=== PATIENT | female | born 1975 | race Caucasian/White ===

== ENCOUNTER 2021-12-13 14:44 | Outpatient (CLI) | payer OTHER, SELFPAY ==
--- NOTE | ~2021-12-13 | MR_ITS ---
MR breast BI wo con 12/14/2021 08:34 CDT INDICATION: History of breast implant. TECHNIQUE: MRI of the breasts perform using using the following sequences: Axial T2 fast spin-echo, 3 -D axial vibrant, sagittal T2 with and without silicone suppression.. COMPARISON: No prior studies for comparison. FINDINGS: No breast parenchymal abnormalities are identified. There is abnormal signal in the left br east implant including subcapsular line sign and keyhole sign compatible with intracapsular rupture. There is abnormal signal intensity on multiple small left axillary lymph nodes on fat suppression seq uences, suspicious for silicone involvement of these lymph nodes, compatible with extracapsular ruptu re. There is a small amount of periimplant fluid in the left breast. There are normal radial folds in the right breast implant. No evidence for intracapsular or extracapsular rupture. IMPRESSION: 1: Right breast: Intact right breast implant without evidence for rupture. 2: Left breast: Abnormal signal intensity within the left breast implant and multiple small left axi llary lymph nodes, compatible with intracapsular and possible extracapsular rupture. Reviewed, dictated and finalized at location A. IMPRESSION: 1: Right breast: Intact right breast implant without evidence for rupture. 2: Left breast: Abnormal signal intensity within the left breast implant and m ultiple small left axillary lymph nodes, compatible with intracapsular and poss ible extracapsular rupture.
== END 2021-12-13 14:45 | disposition home or self-care (01) ==
PROVIDERS: PCP Family Medicine; Visit Provider Family Medicine
DX: R92.8 Other abnormal and inconclusive findings on diagnostic imaging of breast (principal); Z98.82 Breast implant status
CPT/HCPCS: 77047

== ENCOUNTER 2024-04-02 11:04 | Outpatient (CLI) | payer BC, SELFPAY ==
--- NOTE | ~2024-04-02 | MR_ITS ---
MR breast BI wo/w con 04/03/2024 8:53 INFORMATION SYSTEMS PLANNER INDICATION: History of silicone implant rupture. TECHNIQUE: MRI of the breasts perform using standard protocol pre-and post IV contrast with the follo wing sequences: Axial T2 STIR, axial T1, axial vibrant T1 with fat suppression precontrast and multip hasic postcontrast. Axial T2 fast spin echo, 3-D axial vibrant and sagittal T2 with and without silic one suppression sequences. 17 cc MultiHance administered intravenously. COMPARISON: MRI breast dated 12/13/2021 FINDINGS: There are normal radial folds within the right breast implant without evidence for rupture. There are changes of intracapsular implant rupture of the left breast. There is curvilinear high sig nal intensity along the superior and posterior margin of the left breast implant, suspicious for extr acapsular rupture. The lymph nodes in the left axilla on prior examination demonstrating high signal intensity are not included in the [id number] on the current study. No parenchymal abnormalities ar e seen. No definite enhancing masses although the study is not tailored for CAD stream analysis. No d efinite lymphadenopathy. IMPRESSION: 1: Intracapsular rupture left breast implant with possible extracapsular extension. Reviewed, dictated and finalized at location A. RMATION SYSTEMS PLANNER IMPRESSION: 1: Intracapsular rupture left breast implant with possible extracapsular extens ion.
--- OUTSIDE RECORDS SUMMARY | 2024-04-02 12:14 | XMS_ITS ---
Author Organization [facility] Address [address] [place] [phone] Care Team Providers Care General Foreman Name Role Phone Ruby Nogueira Primary Care Provider [phone] REASON FOR VISIT Refill-Controlled Medications Medication SIG (Take, Route, Frequency, Duration) Notes Start Date End Date Status diazePAM 2 MG Take 1-2 tablets Oral two times a day; Duration: 14 days As needed for muscle spasms. DO NOT TAKE WITHIN 12 HOURS OF TAKING ALPRAZOLAM. 03/30/2024 Active Encounters Encounter Location Date Provider Diagnosis [address] [address] 03/30/2024 Ruby Nogueira Other chronic pain G89.29 Assessments Encounter Date Diagnosis (ICD Code) Assessment Notes Treatment Notes Treatment Clinical Notes 03/30/2024 Other chronic pain (ICD-10 - G89.29) Plan Of Treatment Medication Medication Name Sig Start Date Stop Date Notes diazePAM 2 MG Take 1-2 tablets Ora l two times a day; Duration: 14 days 03/30/2024 Next Appt Details Provider Name:Ruby Nogueira , 05/02/2024 11:00:00 AM, [address] [place] [address], [phone], [phone] Progress Notes * Yenifer DURAN DDOB:[birth year] (48 yo F)Acc No.[id number]:03/30/2024 Patient:CALLIDURAN, Yenifer Lolly :1975???Age:48 Y???Sex:Female Phone: [facility] [facility] [address] [address] * Refills? Refill diazePAM Tablet, 2 MG, Oral, 30 Tablet, Take 1-2 tablets, two times a day, As needed for muscle spasms. DO NOT TAKE WITHIN 12 HOURS OF TAKING ALPRAZOLAM., 14 days, Refills=0 Subjective: * Chief Complaints: * ???Refill-Controlled * Medical History:? * Surgical History:? * Hospitalization/Major Diagno stic Procedure:? * Medications:? Objective: * Physical Examination:? Assessment: * Assessment: 1.?Other chronic pain - G89. 29??? Plan: * Treatment: * Procedure Codes:? Billing Information: * Visit Code:? * Procedure Codes:? * true * Date:? Generated for Brenna bell/Aba/Leidy on:?04/02/2024 12:14 PM WEDDING DECORATOR
--- OUTSIDE RECORDS SUMMARY | 2024-04-02 12:14 | XMS_ITS | Clinical Summary ---
Author Organization [facility] Address [address] [place] [address]. [place], [place] [address] [place] [address] Care Team Providers Care Farm Equipment Assembler Name Role Phone Ruby Nogueira MD Primary Care Provider Allergies Active Allergy Reactions Criticality Noted Date Comments Amoxicillin Rash Low 08/31/2021 Ampicillin Rash Low 08/31/2021 Buspirone Anaphylaxis High 08/15/2018 Cephalexin Anaphylaxis High 08/15/2018 Reaction: Anaphylaxis, Erythromycin Rash High 08/15/2018 Pt states allergic to all mycins Pt states allergic to all mycins Pt states allergic to all mycins Penicillins Rash,Vomiting,Diarrh ea,An aphylaxis,Nausea and Vomiting High 10/16/2014 Tape Rash Medium 09/24/2019 Medications venlafaxine XR 150 MG 24 hr capsule Take 1 capsule (150 mg total) by mouth daily. Active ibuprofen 800 MG tablet Take 1 tablet (800 mg total) by mouth every 6 (six) hours as needed for Pain. Active Cholecalciferol (VITAMIN D-3) 1000 units Cap Take by mouth daily. Active marijuana edibles Take 2-25 mg by mouth. Active carisoprodol 350 MG tablet take 1 tablet (350 mg) by oral route once daily as needed 04/02/19 21 Active montelukast 10 MG tablet take 1 tablet (10 mg) by oral route once daily in the evening 04/09/19 21 Active ALPRAZolam 1 MG tablet TAKE 1/2 TABLET at bedtime and a 1/2 tablet as needed for anxiety during the day 10/02/19 20 Active rizatriptan [address] 1 tablet (10 mg) on top of the tongue where it will dissolve, then swallow by translingual route once, may repeat at 2 hour intervals; 03/02/20 20 Active dicyclomine 20 MG tablet Take 1 tablet (20 mg total) by mouth once. 03/22/19 21 Active topiramate 100 MG tablet Take 1 tablet (100 mg total) by mouth 2 (two) times daily. Active buPROPion 75 MG tablet Take 1 tablet (75 mg total) by mouth 2 (two) times daily. Active fluticasone propionate 50 MCG/ACT nasal spray instill one spray IN EACH NOSTRIL TWO TIMES A DAY 03/20/19 22 Active baclofen 10 MG tablet TAKE 1 OR 2 TABLETS BY MOUTH THREE TIMES A DAY NEEDED 06/02/19 22 Active celecoxib 200 MG capsule Take 1 capsule (200 mg total) by mouth daily. 05/13/19 22 Active lidocaine 4 % patch 1 patch. 08/10/19 22 Active pregabalin (LYRICA) 25 MG capsule Take 1 capsule (25 mg total) by mouth 2 (two) times daily. 10/08/19 22 Active levothyroxine (SYNTHROID) 75 MCG tablet TAKE 1 TABLET BY MOUTH EVERY DAY on an empty STOMACH. Recheck labs after taking for 2 months 11/02/19 22 Active cyanocobalamin (VIT B-12) 250 MCG Tab Take 1 tablet (250 mcg total) by mouth daily. Active topiramate (TOPAMAX) 50 MG Tab Take 1 tablet (50 mg total) by mouth nightly. 12/14/19 22 Active diazePAM (VALIUM) 2 MG tablet 1 tablet (2 mg total) 2 (two) times daily. 05/19/19 23 Active cetirizine (ZYRTEC) 5 MG tablet Active albuterol sulfate HFA 108 (90 Base) MCG/ACT inhaler USE 2 PUFFS EVERY FOUR HOURS NEEDED FOR BREATHING 05/17/19 23 Active Probiotic Product (PROBIOTIC ADVANCED) Cap Active Active Problems Problem Noted Date Diagnosed Date Cervical radiculopathy 10/03/2022 Overview (10/03/2022): Added automatically from request for surgery [id number] Arthropathy of cervical facet joint 01/03/2022 Overview (01/03/2022): Added automatically from request for surgery [id number] Lumbar radiculopathy 08/15/2018 Overview (08/15/2018): Added automatically from request for surgery [id number] Social History Tobacco Use Types Packs/Day Years Used Date Smoking Tobacco: Every Day Cigarettes Smokeless Tobacco: Never Tobacco Cessation:Ready to Q uit: Yes; Counseling Given: Yes Alcohol Use Standard Drinks/Week Comments Not Currently 0 (1 standard drink = 0.6 oz pur e alcohol) Comments No Sex and Gender Information Value Date Recorded Sex Assigned at Not on file Legal Sex Female 12:15 PM CDT Gender Identity Not on file Sexual Orientation Not on file Last Filed Vital Signs Vital Sign Reading Time Taken Comments Blood Pressure 137/68 12/07/2022 11:55 AM CDT Pulse 82 12/07/2022 11:55 AM CDT Temperature 36.7 ??C (98 ??F) 12/07/2022 11:55 AM CDT Respiratory Rate 16 12/07/2022 11:55 AM CDT Oxygen Saturation 97% 12/07/2022 11:55 AM CDT Inhaled Oxygen Concentration - - Weight 80 kg (176 lb 5.9 oz) 12/07/2022 11:55 AM CDT Height 165.1 cm (5' 5 ) 04/09/2021 9:59 AM CLINICAL LABORATORY AIDES TEACHER Body Mass Index 29.35 04/09/2021 9:59 AM CLINICAL LABORATORY AIDES TEACHER Plan of Treatment Health Maintenance Due Date Last Done Comments Colorectal Cancer Screening Colonoscopy (10 Years) 1976 Annual Physical 07/21/1979 PHQ-2 (Physician [place]) 1988 Hepatitis C 1994 Hepatitis B Vaccines (1 of 3 - 19+ 3-dose series) 07/21/1995 Mammogram Screening 2016 Pneumococcal Vaccine: Pediatrics (0 to 5 Years) and At-Risk Patients (6 to 64 Years) (2 of 2 - PCV) 02/02/2019 02/02/2018 COVID-19 Vaccine (3 - season) 2023 08/28/2020, 07/31/2020 Influenza Adult (#1) 2023 05/13/2021, 12/29/2020, 04/28/2020, Additional history exists PHQ-2 (Physician [place]) 03/06/2024 DTaP, Tdap and Td Vaccines (6 - Td or Tdap) 09/03/2026 09/03/2016, 08/27/2015, 11/02/1981, Additional history exists Meningococcal B Vaccine Aged Out No l onger eligible based on patient's age to complete this topic Meningococcal Vaccine Aged Out No jo ann catia eligible based on patient's age to complete this topic RSV Immunizations Under 20 Months Aged Out No longer eligible based on patient's age to complete this topic Medical Devices Implanted Type Area Airline Ticket Agent Device Identifier Shelf Expiration Date Model / Serial / Lot Breast Breast Dental Insurance [facility] Care Teams Farm Equipment Assembler Relationship Specialty Start Date End Date Ruby Nogueira MD [address] [place] [address] PCP - General FAMILY PRACTICE 08/15/18
--- OUTSIDE RECORDS SUMMARY | 2024-04-02 12:14 | XMS_ITS | Encounter Summary ---
Author Organization [facility] Address [address] [place] [address]. [place], [place] [id number] [place] [address] Care Team Providers Care Software Development Analyst Name Role Phone Ruby Nogueira MD Primary Care Provider Encounter Details Date Type Department Care Team (Late st Contact Info) Description 12/08/2022 [facility] [place] [place] Documentation [place] [address] [place] [address] Yossi Vang MD [address] [place] [address] Social History Tobacco Use Types Packs/Day Years Used Date Smoking Tobacco: Every Day Cigarettes Smokeless Tobacco: Never Alcohol Use Standard Drinks/Week Comments Not Currently 0 (1 standard drink = 0.6 oz pur e alcohol) Comments No Sex and Gender Information Value Date Recorded Sex Assigned at Not on file Legal Sex Female 12:15 PM CDT Gender Identity Not on file Sexual Orientation Not on file documented as of this encounter Progress Notes * Yossi Vang MD - 12/08/2022 1:45 PM CDT 12/08/22 The patient is a 47-year-old female who has been treated here in the past for both cervical radiculopathy and lumbar radiculopathy as well as various facet joint arthropathies. Patient initially got good results from those things but says that she is now continues to have pain in her neck that radiates down both upper extremities all the way to her hands. She said this is the worst part of her pain syndrome at this time however she has had as many steroid containing injections within the past year as she can have. I have discussed with her sending her to a neurosurgeon and she is agreeable with that. In contacting the neurosurgeons office he requires that she have an MRI of her cervical spine that was done within the last 6 months so we will order a new MRI of her cervical spine. Yossi Vang MD documented in this encounter Plan of Treatment Not on file documented as of this encounter Visit Diagnoses Not on filedocumented in this encounter Care Teams Software Development Analyst Relationship Specialty Start Date End Date Ruby Nogueira MD [address] [place] [address] PCP - General FAMILY PRACTICE 08/15/18 documented as of this encounter
--- OUTSIDE RECORDS SUMMARY | 2024-04-02 12:15 | XMS_ITS ---
Author Organization [facility] Address [address] [place] [phone] Care Team Providers Care Urologist Md Name Role Phone Ruby Nogueira Primary Care Provider [phone] REASON FOR VISIT Refills Medications Medication SIG (Take, Route, Frequency, Duration) Notes Start Date End Date Status Aimovig 140 MG/ML as directed Subcutaneous monthly; Duration: 30 days 1 mL monthly PA approved, please fill for patient 03/12/2024 Active Encounters Encounter Location Date Provider Diagnosis [address] [phone] 03/12/2024 Ruby Nogueira Plan Of Treatment Medication Medication Name Sig Start Date Stop Date Notes Aimovig 140 MG/ML as directed Subcutan eous monthly; Duration: 30 days 03/12/2024 PA approved, please fill for patient Next Appt Details Provider Name:Ruby Nogueira , 05/02/2024 11:00:00 AM, [address] [place] [address], [phone], [phone] Progress Notes * Yenifer DURAN DDOB:[birth year] (48 yo F)Acc No.[id number]:03/12/2024 Patient:?Yenifer DURAN :1975???Age:48 Y???Sex:Female Phone: [place], [address] * Refills? Start Aimovig Solution Auto-injector, 140 MG/ML, Subcutaneous, 1 Milliliter, as directed, monthly, 1 mL monthly, 30 days, Refills=3 * true * Date:? Generated for Printi ng/Faxing/eTransmitting on:?04/02/2024 12:14 PM RELEASE AND TECHNICAL RECORDS CLERK
--- OUTSIDE RECORDS SUMMARY | 2024-04-02 12:15 | XMS_ITS ---
Author Organization [facility] Address [address] [place] [phone] Care Team Providers Care Manager Restaurant Name Role Phone Ruby Nogueira Primary Care Provider [phone] REASON FOR VISIT Controlled Medications Medication SIG (Take, Route, Fr equency, Duration) Notes Start Date End Date Status Pregabalin 75 MG 1 capsule Orally 3 t imes a day; Duration: 30 days 03/14/2024 06/12/2024 Active Problems Problem Type SNOMED Code ICD Code Onset Dates Problem Status W/U Status Risk Notes Problem Paresthesia of both hands ([id number]) Paresthesia of both hands (R20.2) Active confirmed Encounters Encounter Location Date Provider Diagnosis [address] [address] 03/14/2024 Ruby Nogueira Paresthesia of both hands R20.2 Assessments Encounter Date Diagnosis (ICD Code) Assessment Notes Treat ment Notes Treatment Clinical Notes 03/14/2024 Paresthesia of both hands (ICD-10 - R20.2) Plan Of Treatment Medication Medication Name Sig Start Date Stop Date Notes Pregabalin 75 MG 1 capsule Orally 3 t imes a day; Duration: 30 days 03/14/2024 06/12/2024 Next Appt Details Provider Name:Ruby Nogueira , 05/02/2024 11:00:00 AM, [address] [place] [address], [phone], [phone] Progress Notes * Yenifer DURAN DDOB:[birth year] (48 yo F)Acc No.[id number]:03/14/2024 Patient:?Yenifer DURAN :1975???Age:48 Y???Sex:Female Phone: Address:[address], [place], [address] * Refills? Start Pregabalin Capsule, 75 MG, Orally, 90 Capsule, 1 capsule, 3 times a day, 30 days, Refills=2 Subjective: * Chief Complaints: * ???Controlled * Medical History:? * Surgical History:? * Hospitalization/Major Diagno stic Procedure:? * Medications:? Objective: * Physical Examination:? Assessment: * Assessment: 1.?Paresthesia of both hands - R20.2??? Plan: * Treatment: * Procedure Codes:? Billing Information: * Visit Code:? * Procedure Codes:? * true * Date:? Generated for Brenna bell/Aba/Leidy on:?04/02/2024 12:15 PM QUILL REAMER
== END 2024-04-02 11:05 | disposition home or self-care (01) ==
PROVIDERS: PCP Family Medicine; Visit Provider Nurse Practitioner Family
DX: Z12.31 Encounter for screening mammogram for malignant neoplasm of breast (principal); T85.41XA Breakdown (mechanical) of breast prosthesis and implant, initial encounter; Y83.8 Other surgical procedures as the cause of abnormal reaction of the patient, or of later complication, without mention of misadventure at the time of the procedure; Z98.82 Breast implant status
CPT/HCPCS: 77049; A9577; C8908

== ENCOUNTER 2024-08-20 02:53 | Day surgery (SDC) | payer OTHER, SELFPAY ==
[2024-08-19 08:34] VITALS: BMI 27.5
--- NOTE | 2024-08-19 08:49 | PC.NURSE ---
Report to the Outpatient Waiting Room, entrance under the green pavilion located off [facility], at time _0600_ on date _[id number]_. Planned Procedure Time: _0730_.? Time changes happen often and if your time is changed the preop area will call you the afternoon before. - You and your visitor will be asked to self-screen and do not enter if you have any COVID symptoms. Please call surgeon if you need to reschedule. - A mask is optional within the hospital at this time. Patients may have clear liquids (water, carbonated beverages, clear teas, apple juice) until 3 hours prior to surgery with a maximum of 20 ounces. - No food from midnight until time of surgery and no smoking, or chewing tobacco (or any form of nicotine). No chewing gum, candy or mints. Take only the following medications with a SIP of water on the morning of surgery: ___Duloxetine, Levothyroxine and Pregabalin DO NOT STOP ANY OF YOUR OTHER PRESCRIPTION MEDICATIONS PRIOR TO SURGERY EXCEPT THE FOLLOWING Hold all vitamins and supplements for 3 days per anesthesiologist. Medications to discontinue per physician Date to take last dose Please no make-up, nail haitian, hairspray, perfume, deodorant, or body powder the day of surgery.? No jewelry (including any body piercings) or valuables the day of surgery, leave them at home.? Please take a shower or bath the night before, or the morning of, surgery with an antibacterial soap.? Wear comfortable, loose fitting clothing.? - Jewelry must be removed prior to entering the operating room.? Rings and piercings that are not removed may be cut off. - The hospital will not accept responsibility for valuables.? - Please leave all valuables, including medications, at home the day of surgery. If you are going home after surgery, a licensed delivery truck driver heavy must drive you home.? - NO public transportation without another adult if you receive anesthesia. - We recommend that an adult stay with you for 24 hours following discharge. - We also recommend that you do not drive, make important decision, drink alcoholic beverages, or take any drugs that were not prescribed by your health care provider for at least 24 hours after your discharge time. Follow any additional instructions given to you from your surgeon. Telephone instructions given to __Erica___and asked if any additional questions and then verbalized understanding. Patient advised to call surgeon office or pre surgery nurse liaison [phone] if any additional questions.
[2024-08-20] VITALS (10 sets, daily range): BP systolic 106–165; BP diastolic 60–96; PULSE 60–96; RESP 12–17; TEMP 35.9–36.1; O2SAT 93–100; BMI 29.9
--- OUTSIDE RECORDS SUMMARY | 2024-08-20 02:55 | XMS_ITS | Encounter Summary ---
Author Organization [facility] Address [facility] [place] [address] Care Team Providers Care Propulsion Machinery Service Engineer Name Role Phone Ruby Nogueira MD Primary Care Provider Encounter Details Date Type Department Care Team (Late st Contact Info) Description 12/08/2022 [facility] [place] Documentation [facility] [address] [place] [address] Yossi Vang MD [address] [place] [address] Social History Tobacco Use Types [...] on filedocumented in this encounter Care Teams Propulsion Machinery Service Engineer Relationship Specialty Start Date End Date Ruby Nogueira MD [address] [place] [address] PCP - General FAMILY PRACTICE 08/15/18 documented as of this encounter
--- OUTSIDE RECORDS SUMMARY | 2024-08-20 02:55 | XMS_ITS | Clinical Summary ---
Author Organization [facility] Address [address] [place] [address] Care Team Providers Care Therapist Occupational Name Role Phone Ruby Nogueira MD Primary [...] (10/03/2022): Added automatically from request for surgery [id number] Arthropathy of cervical facet joint 01/03/2022 Overview (01/03/2022): Added automatically from request for surgery [id number] Lumbar radiculopathy 08/15/2018 Overview (08/15/2018): Added automatically from request for surgery [id number] Social History Tobacco Use Types Packs/Day Years [...] 82 12/07/2022 11:55 AM CDT Temperature 36.7 C (98 F) 12/07/2022 11:55 AM CDT Respiratory Rate 16 12/07/2022 11:55 AM CDT Oxygen Saturation 97% 12/07/2022 11:55 AM CDT Inhaled Oxygen Concentration - - Weight 80 kg (176 lb 5.9 oz) 12/07/2022 11:55 AM CDT Height 165.1 cm (5' 5) 04/09/2021 9:59 AM ITALIAN LECTURER Body Mass Index 29.35 04/09/2021 9:59 AM ITALIAN LECTURER Plan of Treatment Health Maintenance Due Date Last Done Comments Colorectal Cancer Screening Colonoscopy (10 Years) 1976 Annual Physical 07/21/1979 Hepatitis C 1994 Hepatitis B Vaccines (1 of 3 - 19+ 3-dose series) 07/21/1995 Mammogram Screening 2016 Pneumococcal Vaccine: Pediatrics (0 to 5 Years) and At-Risk Patients (6 to 49 Years) (2 of 2 - PCV) 02/02/2019 02/02/2018 COVID-19 Vaccine (3 - season) 2023 08/28/2020, 07/31/2020 PHQ-2 (Physician [place]) 03/06/2024 DTaP, Tdap and Td Vaccines (6 [...] this topic Medical Devices Implanted Type Area Neuro Intensivist Physician Device Identifier Shelf Expiration Date Model / Serial / Lot Breast Breast Dental Insurance [facility] Care Teams Therapist Occupational Relationship Specialty Start Date End Date Ruby Nogueira MD [address] [place] [address] PCP - General FAMILY PRACTICE 08/15/18
--- OUTSIDE RECORDS SUMMARY | 2024-08-20 02:56 | XMS_ITS | Encounter Summary ---
Author Organization [facility] Healthcare Address [address] [place] [address] Care Team Providers Care Corporate Lawyer Name Role Phone Ruby Nogueira MD Primary Care Provider Octavia Ricci FILLER PICKER Unavailable [phone] Reason for Visit * Reason Onset Date Comments PMC Preprocedure 08/07/2024 Encounter Details Date Type Department Care Team (Late st Contact Info) Description 08/07/2024 Telephone [facility] [place] [facility] [address] [facility] [address] [place] [address] Yogesh Hearn MD [address] [place] [address] PMC Preprocedure Social History Tobacco Use Types Packs/Day Years Used Date Smoking Tobacco: Every Day Cigarettes 1 33.5 Started: 1991 Smokeless Tobacco: Never Alcohol Use Standard Drinks/Week Comments Yes 1 (1 standard drink = 0.6 oz pur e alcohol) AUDIT-C Answer Date Recorded Q1: How often do you have a drink containing alcohol? Never 08/08/2024 Q2: How many drinks containi ng alcohol do you have on a typical day when you are drinking? Patient does not drink Q3: How often do you have si x or more drinks on one occasion? Never 08/08/2024 Comments No Sex and Gender Information Value Date Recorded Sex Assigned at Not on file Legal Sex Female 7:11 AM CHIEF COMPLIANCE OFFICER Gender Identity Female 09/15/2022 8:08 PM CDT Sexual Orientation Straight 09/15/2022 8: 08 PM CDT documented as of this encounter Functional Status * Audit-C Score Answer Date of Assessment Author 0 08/08/2024 8:26 AM Ryan Bailey RN * Question Answer Date of Assessment Author Q1: How often do you have a drink containing alcohol? Never 08/08/2024 8:26 AM Lindsey Bailey RN Q2: How many drinks containing alcohol do you have on a typical day when you are drinking? Patient does not drink 08/08/2024 8:26 AM Lindsey Bailey RN Q3: How often do you have six or more drinks on one occasion? Never 08/08/2024 8:26 AM Lindsey Bailey RN documented as of this encounter Plan of Treatment Not on file documented as of this encounter Goals Goal Patient Goal Type Associated Problems Recent Progress Patient-Stated? Author CCM Chronic Pain Care Plan Chronic Care Management No change(08/12 9:41 AM CDT) No Alexandria Montero RN Note: Problem: Chronic Pain Goals: 1. Minimize further functional decline 2. Maximize quality of life 3. Control pain Strategies: - Activity/exercise program recommendation - Conservative stepwise pain medicine strategy with multi-disciplinary approach - Recommend healthy lifestyle strategies and compensatory methods as needed documented as of this encounter Visit Diagnoses Not on filedocumented in this encounter Care Teams Corporate Lawyer Relationship Specialty Start Date End Date Ruby Nogueira MD [address] [facility] [employer] [place], [place] [id number] PCP - General 08/11/16 Octavia Ricci NP [address], [place] [id number] Nurse Practitioner Family Medicine 07/29/22 documented as of this encounter
--- OUTSIDE RECORDS SUMMARY | 2024-08-20 02:56 | XMS_ITS | Clinical Summary ---
Author Organization [facility] Address [address] [place] [address] Phone Care Team Providers Care Service Worker Helper Name Role Phone Unavailable Primary Care Provider Unavailabl e Allergies Active Allergy Reactions Criticality Noted Date Comments Adhesive Rash Medium 09/24/2019 Adhesive Tape-Silicones Rash Medium 09/24/2019 Buspirone Anaphylaxis High 08/15/2018 Cephalexin Anaphylaxis High 08/15/2018 Reaction: Anaphylaxis, Erythromycin Rash High 08/15/2018 Pt states allergic to all mycins Pt states allergic to all mycins Penicillins Anaphylaxis,Diarrhea , Rash,Nausea and Vomiting High 10/16/2014 Medications ALPRAZolam (XANAX) 1 mg tablet TAKE 1/2 TABLET at bedtime and a 1/2 tablet as needed for anxiety during the day 0 Active baclofen (LIORESAL) 10 mg tablet TAKE 1 OR 2 TABLETS BY MOUTH THREE TIMES A DAY NEEDED 2 Active buPROPion (WELLBUTRIN) 75 mg tablet Take 75 mg by mouth 2 times daily. 2 Active carisoprodoL (SOMA) 350 mg tablet take 1 tablet (350 mg) by oral route once daily as needed 1 Active celecoxib (CeleBREX) 200 mg capsule Take 1 Capsule(s) BY MOUTH every day as needed for pain 2 Active cholecalciferol , Vitamin D3, (VITAMIN D3) 25 mcg (1,000 unit) Capsule Take by mouth daily. Active dicyclomine (BENTYL) 20 mg tablet TAKE 1 TABLET BY MOUTH NIGHTLY AT BEDTIME 2 Active fluticasone propionate (FLONASE) 50 mcg/spray [place], Suspension nasal inhaler instill one spray IN EACH NOSTRIL TWO TIMES A DAY 2 Active ibuprofen (MOTRIN) 800 mg tablet Take 800 mg by mouth every 6 hours as needed. Active levothyroxine 75 mcg tablet TAKE 1 TABLET BY MOUTH EVERY DAY on an empty STOMACH. Recheck labs after taking for 2 months 2 Active lidocaine (LIDODERM) 5 % Adhesive Patch, Medicated Apply one patch on the skin DAILY and leave on for up to 12 hours. May apply up to 3 patches per day 2 Active montelukast (SINGULAIR) 10 mg tablet take 1 tablet (10 mg) by oral route once daily in the evening 0 Active pregabalin (LYRICA) 25 mg Capsule Take 25 mg by mouth 2 times daily. 2 Active rizatriptan (MAXALT BEAUTY SHOP MANAGER) 10 mg Tablet, Rapid Dissolve place 1 tablet (10 mg) on top of the tongue where it will dissolve, then swallow by translingual route once, may repeat at 2 hour intervals; 0 Active topiramate (TOPAMAX) 100 mg tablet Take 150 mg by mouth daily at bedtime. 1 Active topiramate (TOPAMAX) 50 mg tablet Take 50 mg by mouth late in the day. 2 Active venlafaxine (EFFEXOR XR) 150 mg Extended Release 24 hour capsule Take 150 mg by mouth daily. Active cyanocobalamin (VITAMIN B-12) 250 mcg Tablet Take 250 mcg by mouth daily. 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 Anxiety 01/22/2014 Arthritis 01/22/2014 Irritable mood 01/22/2014 Muscle pain 01/22/2014 Social History Tobacco Use Types Packs/Day Years Used Date Smoking Tobacco: Every Day Cigarettes 0.5 20 Smokeless Tobacco: Never Tobacco Cessation:Ready to Q uit: Not Asked; Counseling Given: Not Answered Comments Unknown Sex and Gender Information Value Date Recorded Sex Assigned at Not on file Legal Sex Female 9:59 AM AIRDROP SYSTEMS TECHNICIAN Gender Identity Not on file Sexual Orientation Not on file Last Filed Vital Signs Vital Sign Reading Time Taken Comments Blood Pressure 124/78 01/17/2022 3:35 PM AIRDROP SYSTEMS TECHNICIAN Pulse - - Temperature - - Respiratory Rate - - Oxygen Saturation - - Inhaled Oxygen Concentration - - Weight 74.8 kg (165 lb) 01/17/2022 3:35 PM AIRDROP SYSTEMS TECHNICIAN Height 165.7 cm (5' 5.25) 01/17/2022 3:35 PM CS T Body Mass Index 27.25 01/17/2022 3:35 PM AIRDROP SYSTEMS TECHNICIAN Plan of Treatment Health Maintenance Due Date Last Done Comments DTAP/TDAP/TD VACCINES (1 - Tdap) 07/21/1995 HEPATITIS B VACCINES (1 of 3 - 19+ 3-dose series) 07/04 HPV/Cotest (21-29) 1997 CERVICAL CANCER SCREENING 2006 HPV/Cotest (30-65) 2006 PAP SMEAR 2006 BREAST CANCER SCREENING 2016 COLORECTAL SCREENING 2021 Colorectal Cancer Screening 2021 FIT-DNA Q 3 years 2021 FIT/FOBT Q 1 year 2021 Flex Sig/CT Colonography Q 5 years 2021 INFLUENZA VACCINE (#1) 2023 Insurance [employer]
--- OUTSIDE RECORDS SUMMARY | 2024-08-20 02:56 | XMS_ITS | Clinical Summary ---
Author Organization [facility] Address [address] [place] [address] Care Team Providers Care Cleaning Laborer Name Role Phone Ruby Nogueira MD Primary Care Provider Octavia Ricci INVESTOR RELATIONS SPECIALIST Unavailable [phone] Allergies Active Allergy Reactions Criticality Noted Date Comments Adhesive Tape-Silicones Rash Medium 09/24/2019 Buspirone Anaphylaxis High 08/15/2018 Cephalexin Anaphylaxis High Reaction: Anaphylaxis, Clindamycin Nausea & Vomiting Low 09/16/2022 Erythromycin Rash High 08/15/2018 Pt states allergic to all mycins Methocarbamol Headache Low 05/16/2024 Penicillins Diarrhea,Rash,Anaphy l axis High 10/16/2014 Medications ALPRAZolam (XANAX) 0.5 mg tablet Take 1 tablet (0.5 mg total) by mouth nightly as needed Active dicyclomine (BENTYL) 20 mg tablet one tab daily 09/04/19 19 Active fluticasone propionate (FLONASE) 50 mcg/actuation nasal spray USE 1 SPRAY IN EACH NOSTRIL DAILY 12/19/19 18 Active celecoxib (CeleBREX) 200 mg capsule Take 1 Capsule(s) BY MOUTH every day as needed for pain 05/13/19 22 Active carisoprodoL (SOMA) 350 mg tablet Take 1 tablet (350 mg total) by mouth daily as needed 05/11/19 22 Active baclofen (LIORESAL) 10 mg tablet TAKE 1 OR 2 TABLETS BY MOUTH THREE TIMES A DAY NEEDED 06/02/19 22 Active cetirizine (ZyrTEC) 5 mg tablet Take 1 tablet (5 mg total) by mouth daily Active Valium 2 mg tablet 04/12/19 24 Active albuterol HFA (PROVENTIL HFA,VENTOLIN HFA,PROAIR HFA) 90 mcg/actuation inhaler USE 2 PUFFS EVERY FOUR HOURS NEEDED FOR BREATHING 05/17/19 23 Active L. acidophilus/Bifid. animalis 32 billion cell capsule Take by mouth Active Synthroid 75 mcg tablet 09/16/19 20 Active pregabalin (LYRICA) 75 mg capsule 03/18/19 23 Active rizatriptan ASSISTANT GM OF CONTENT & DELIVERY (MAXALT-ASSISTANT GM OF CONTENT & DELIVERY) 10 mg disintegrating tablet DISSOLVE 1 TABLET ON THE TONGUE every day as needed for headache Active Aimovig Autoinjector 140 mg/mL auto-injector inject 140 mg under the skin EVERY MONTH in the abdomen, thigh, or outer area of upper arm 12/07/19 24 Active fluconazole (DIFLUCAN) 150 mg tablet Take 1 tablet (150 mg total) by mouth daily 01/12/[address] (CYMBALTA) 60 mg capsule Take 1 capsule (60 mg total) by mouth 2 (two) times a day 05/14/19 25 Active lidocaine (LIDODERM) 5 % Apply one patch onto skin and remove after 12 hours. 05/11/19 25 Active QUEtiapine XR (SEROquel XR) 50 mg tablet extended release 24 hr Take 1 tablet (50 mg total) by mouth nightly 05/11/19 25 Active famotidine (PEPCID) 40 mg tablet Take 1 tablet (40 mg total) by mouth nightly 05/24/19 25 Active topiramate (TOPAMAX) 100 mg tablet Take 1 tablet (100 mg total) by mouth 2 (two) times a day 05/12/19 25 Active topiramate (TOPAMAX) 50 mg tablet Take 1 tablet (50 mg total) by mouth nightly 05/17/19 25 Active montelukast (SINGULAIR) 10 mg tablet Take 1 tablet (10 mg total) by mouth nightly Active nystatin 100,000 unit/mL suspension Take 5 ML (OR CC) BY MOUTH FOUR TIMES A DAY 01/12/20 24 025 Discontinu ed(Therapy completed) suzetrigine 50 mg tablet Take 50 mg by mouth every 12 (twelve) hours for 15 doses 30 tablet 3 08/09/19 25 025 Active Problems Problem Noted Date Diagnosed Date Intractable neuropathic pain of lower extremity 08/13/2024 Chronic left sacroiliac joint pain 08/08/2024 Groin pain, unspecified laterality 08/08/2024 Small fiber neuropathy 05/16/2024 Cervicalgia 05/16/2024 Lumbar radiculopathy 08/15/2018 Overview (06/15/2021): Added automatically from request for surgery [id number] Hyperabduction syndrome 11/13/2015 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 Chronic pain 02/10/2014 Neuralgia 02/10/2014 Thoracic outlet syndrome 02/10/2014 Fatigue 01/22/2014 Arthritis 01/22/2014 Muscle pain 01/22/2014 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 Anxiety 01/22/2014 Irritable mood 01/22/2014 Pain in extremity 01/22/2014 Encounters Date Type Department Care Team Description 08/12/2024 9:28 AM CDT - 08/12/2024 11:59 PM CDT Hospital Encounter [facility] [address] [place] [address] [address] [place] [address] Yoegsh Hearn MD Small fiber neuropathy (Primary Dx) Discharge Disposition: Discharge to home or self care 08/08/2024 9:58 AM CDT - 08/08/2024 11:59 PM CDT Hospital Encounter [facility] [address] [place] [id number] Groin pain, unspecified laterality Discharge Disposition: Discharge to home or self care 08/08/2024 8:15 AM CDT - 08/08/2024 11:59 PM CDT Hospital Encounter [facility] [address] [facility] [address] [place] [phone] Reggie Ratliff MD PhD Chronic left sacroiliac joint pain (Primary Dx); Intractable neuropathic pain of lower extremity; Groin pain, unspecified laterality Discharge Disposition: Discharge to home or self care 08/07/2024 Telephone [facility] [address] [place] [address] [facility] Preprocedure 07/03/2024 Telephone [facility] [place] [address], [address] [place] [phone] Reggie Ratliff MD PhD Scheduling Appointments 07/02/2024 Orders Only [facility] [address] [place] [address] Medical Office Building [address] [place] [phone] Moni Wong, ЕКАТЕРИНА Low back pain, non-specific (Primary Dx); Sacroiliac joint pain 06/28/2024 Telephone [facility] [address] [place] [address] 6[address] [place] [address] [place] [phone] Moni Wong, ЕКАТЕРИНА 06/21/2024 Telephone [facility] [address] [place] [address] 6th [place] [address] [place] [phone] Moni Wong, ЕКАТЕРИНА 06/04/2024 12:38 PM CDT - 06/04/2024 11:59 PM CDT Hospital Encounter [facility] [address] [facility] [address] [place] [address] Maureen Goetz MD PhD Small fiber neuropathy (Primary Dx); Neuralgia; Lumbar radiculopathy Discharge Disposition: Discharge to home or self care 06/03/2024 Orders Only [facility] [place] [address], [address] [place] [phone] Reggie Ratliff MD PhD 05/23/2024 Telephone [facility] [address] [place] [address] 6[address] [place] [address] [place] [phone] Moni Wong, INVESTOR RELATIONS SPECIALIST from Last 3 Months Immunizations Immunization Administration Dates Next Due DTP 12/10/1978, 9,1976,09/23 Flucelvax Influenza Quad 05/13/2021 Influenza, Quadrivalent, Spl it, Intramuscular 12/14/2018 Influenza, Quadrivalent, Spl it, Preservative Free, Intramuscular 02/02/2018,01/30/2017 MMR 12/05/1990,10/20/1977 OPV 11/02/1981, 9,1976,09/23 Pneumococcal Polysaccharide PPV23 02/02/2018 Td, adsorbed 11/02/1981 Tdap 08/27/2015 Surgical History Surgery Date Site/Laterality Comments SHOULDER SURGERY Shoulder Surgery - (Added by TW Conv) AR TOTAL ABDOMINAL HYSTERECT W/WO RMVL TUBE OVARY Hysterectomy - (Added by TW Conv) OVARY SURGERY Ovarian Surgery - (Added by TW Conv) AR RHINP PRIM LAT&ALAR CRTLGS&/ELVTN NASAL TI Rhinoplasty - (Added by TW Conv) AR ENLARGE BREAST Breast Surgery Enlargement Procedure - (Added by TW Conv) HYSTERECTOMY BLADDER SURGERY SECTION Medical History Medical History Date Comments Anxiety Asthma Depression Gastric reflux Hypothyroidism Family History Medical History Relation Name Comments Diabetes Brother Attila Hypertension Brother Attila Cancer Father Elfego Depression Father Elfego Diabetes Father Elfego Hypertension Father Elfego Hypertension Maternal Grandfather Hypertension Maternal Grandmother Arthritis Mother Rachelle Depression Mother Rachelle Diabetes Mother Rachelle Hypertension Mother Rachelle Hypertension Paternal Grandfather Grandfather Depression Sister Moni Diabetes Sister Moni Hypertension Sister Moni Relation Name Status Comments Brother Attila Father Elfego Maternal Grandfather Maternal Grandmother Mother Rachelle Paternal Grandfather Grandfather Sister Moni Social History Tobacco Use Types Packs/Day Years Used Date Smoking Tobacco: Former Cigarettes 1 33.5 S tarted: 1991 Smokeless Tobacco: Never Alcohol Use Standard Drinks/Week Comments Yes 1 (1 standard drink = 0.6 oz pur e alcohol) AUDIT-C Answer Date Recorded Q1: How often do you have a drink containing alcohol? Never 08/12/2024 Q2: How many drinks containi ng alcohol do you have on a typical day when you are drinking? Patient does not drink Q3: How often do you have si x or more drinks on one occasion? 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 TENDER INSULATION BOARD Gender Identity Female 09/15/2022 8:08 PM CDT Sexual Orientation Straight 09/15/2022 8: 08 PM CDT Obstetrics History Last Filed Vital Signs Vital Sign Reading Time Taken Comments Blood Pressure 122/69 08/12/2024 11:48 AM CDT Pulse 64 08/12/2024 11:48 AM CDT Temperature 36.1 C (96.9 F) 08/12/2024 9:36 AM CDT Respiratory Rate 13 08/12/2024 11:48 AM CDT Oxygen Saturation 95% 08/12/2024 11:48 AM CDT Inhaled Oxygen Concentration - - Weight 80.3 kg (177 lb 0.5 oz) 08/12/2024 9:36 A M CDT Height 165.7 cm (5' 5.25) 08/12/2024 9:36 AM CD T Body Mass Index 29.23 08/12/2024 9:36 AM CDT Plan of Treatment Health Maintenance Due Date Last Done Comments Breast Cancer Screening-Mammogram 1976 Colon Cancer Screening-Colonoscopy 1976 Depression Screening 1976 Hepatitis C Screening 1976 Hepatitis B Screening 1994 Regular Well Visit/Exam 18-64 1994 Pneumococcal vaccine <65 (2 of 2 - PCV) 02/02/2019 02/02/2018 Covid-19 Vaccine (3 - 2023-2 5 season) 2024 01/19/2024, 01/23/2023 DTaP/Tdap/Td Vaccine (6 - Td or Tdap) 09/03/2026 09/03/2016, 08/27/2015, 11/02/1981, Additional history exists Influenza Vaccine Completed 01/19/2024, , 04/21/2022, Additional history exists Goals Goal Patient Goal Type Associated Problems Recent Progress Patient-Stated? Author CCM Chronic Pain Care Plan Chronic Care Management No change(08/12 9:41 AM CDT) Alexandria Hernández, RN Note: Problem: Chronic Pain Goals: 1. Minimize further functional decline 2. Maximize quality of life 3. Control pain Strategies: - Activity/exercise program recommendation - Conservative stepwise pain medicine strategy with multi-disciplinary approach - Recommend healthy lifestyle strategies and compensatory methods as needed Procedures Procedure Name Priority Date/Time Associated Diagnosis Comments XR HIPS BILATERAL W PELVIS 5 OR MORE VIEWS Schedule Routine, Read Routine (OP Routine) 08/08/2024 10:10 AM CDT Groin pain, unspecified laterality from Last 3 Months Results * XR Hips Bilateral 5 or More Views W Pelvis (08/08/2024 10:10 AM CDT) Anatomical Region Laterality Modality Lower Extremities, Hip, Pelvis Bilateral C omputed Radiography 08/08/2024 12:0 6 PM CDT Impressions 08/08/2024 12:31 PM CDT No acute osseous abnormality in the hips. Dictated by: Héctor Mittal M.D. The radiology attending physician has personally reviewed this study, and had reviewed and/or edited this written report and agrees with it. Electronically signed by: Jamel Nichols M.D. Narrative 08/08/2024 12:31 PM CDT EXAMINATION: XR HIPS BILATERAL 5 OR MORE VIEWS W PELVIS HISTORY: Pain radiating to groin FINDINGS: 5 radiographs of the hips are submitted without prior for comparison. No acute fracture or dislocation. The femoral heads are well-seated in the acetabula. The sacroiliac joints are normal. Procedure Note Jamel Nichols MD PhD - 08/08/2024 EXAMINATION: XR HIPS BILATERAL 5 OR MORE VIEWS W PELVIS HISTORY: Pain radiating to groin FINDINGS: 5 radiographs of the hips are submitted without prior for comparison. No acute fracture or dislocation. The femoral heads are well-seated in the acetabula. The sacroiliac joints are normal. IMPRESSION: No acute osseous abnormality in the hips. Dictated by: Héctor Mittal M.D. The radiology attending physician has personally reviewed this study, and had reviewed and/or edited this written report and agrees with it. Electronically signed by: Jamel Nichols M.D. Reggie Ratliff MD PhD IMG XR PROCED URES Final Result from Last [address] [facility] [employer] [place] [employer] [place] Care Teams Cleaning Laborer Relationship Specialty Start Date End Date Ruby Nogueira MD [address] [place], [place] [id number] PCP - General 08/11/16 Octavia Ricci NP [address] [place], [place] [id number] Nurse Practitioner Family Medicine 07/29/22
--- OUTSIDE RECORDS SUMMARY | 2024-08-20 02:56 | XMS_ITS | Referral Summary ---
Author Organization [facility] Address [address] [place] [address] Care Team Providers Care Summer Law Clerk Name Role Phone Ruby Nogueira MD Primary Care Provider Octavia Ricci NP Unavailable [phone] Encounters Date Type Department Care Team Description 08/12/2024 9:28 AM CDT - 08/12/2024 11:59 PM CDT Hospital Encounter [facility] Center at the [facility] [address] [place] [address] Yogesh Hearn MD Small fiber neuropathy (Primary Dx) Discharge Disposition: Discharge to home or self care 08/08/2024 9:58 AM CDT - 08/08/2024 11:59 PM CDT Hospital Encounter [facility] [address] [place] [address] Groin pain, unspecified laterality Discharge Disposition: Discharge to home or self care 08/08/2024 8:15 AM CDT - 08/08/2024 11:59 PM CDT Hospital Encounter [facility] at [facility] [address] [place] [phone] Reggie Ratliff MD PhD Chronic left sacroiliac joint pain (Primary Dx); Intractable neuropathic pain of lower extremity; Groin pain, unspecified laterality Discharge Disposition: Discharge to home or self care 08/07/2024 Telephone [facility] [address] [facility] [address] [place] [address] Yogesh Hearn MD [facility] Preprocedure 07/03/2024 Telephone [facility] at [address] [place] [phone] Reggie Ratliff MD PhD Scheduling Appointments 07/02/2024 Orders Only [facility] Neurosurgery [facility] [address] [place] [phone] Moni Wong, ЕКАТЕРИНА Low back pain, non-specific (Primary Dx); Sacroiliac joint pain 06/28/2024 Telephone [facility] Neurosurgery [address] [place] [address] [facility] 6[address] [place] [address] [place] [address] Moni Wong, ЕКАТЕРИНА 06/21/2024 Telephone [facility] Neurosurgery [address] [place] [address] [facility] 6[address] [place] [address] [place] [phone] Moni Wong, ЕКАТЕРИНА 06/04/2024 12:38 PM CDT - 06/04/2024 11:59 PM CDT Hospital Encounter [facility] [address] [facility] [facility] [address] [place] [address] Maureen Goetz MD PhD Small fiber neuropathy (Primary Dx); Neuralgia; Lumbar radiculopathy Discharge Disposition: Discharge to home or self care 06/03/2024 Orders Only [facility] at [address] [place] [phone] Reggie Ratliff MD PhD 05/23/2024 Telephone [facility] Neurosurgery [address] [place] [address] 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 Anxiety 01/22/2014 Irritable mood 01/22/2014 Pain in extremity 01/22/2014 Immunizations Immunization Administration Dates Next Due DTP 12/10/1978, 9,1976,09/23 Flucelvax Influenza Quad 05/13/2021 Influenza, Quadrivalent, Spl it, Intramuscular 12/14/2018 Influenza, Quadrivalent, Spl it, Preservative Free, Intramuscular 02/02/2018,01/30/2017 MMR 12/05/1990,10/20/1977 OPV 11/02/1981, 9,1976,09/23 Pneumococcal Polysaccharide PPV23 02/02/2018 Td, adsorbed 11/02/1981 Tdap 08/27/2015 Social History Tobacco Use Types Packs/Day Years [...] on file Legal Sex Female 7:11 AM [employer] Gender Identity Female 09/15/2022 8:08 PM CDT Sexual Orientation Straight 09/15/2022 8: 08 PM CDT Last Filed Vital Signs Vital Sign Reading [...] 08/12/2024 9:36 AM CDT Plan of Treatment Not on file Goals Goal Patient Goal Type Associated Problems Recent Progress Patient-Stated? Author CCM Chronic Pain Care Plan Chronic Care Management No change(08/12 9:41 AM CDT) No Alexandria Montero, RN Note: Problem: Chronic Pain Goals: 1. [...] Final Result from Last 3 Months Insurance [facility] [employer] [place] Care Teams Summer Law Clerk Relationship Specialty Start Date End Date Ruby Nogeuira MD [address] [place] [address] PCP - General 08/11/16 Octavia Ricci NP [address] [place] [address] Nurse Practitioner Family Medicine 07/29/22
--- OUTSIDE RECORDS SUMMARY | 2024-08-20 02:56 | XMS_ITS | Patient Health Record ---
Author Organization [facility] Address [address] [place] [address] Care Team Providers Care Certified Pediatric Nurse Practitioner Name Role Phone Dr. Ruby Nogueira Primary Care Provider [phone] Octavia Ricci Unavailable [phone] Migration, Provider Unavailable Unavailable Allergies Allergen (clinical drug ingredient) Drug/Non Drug Allergy documented on EMR Reaction Allergy Type Onset Date Status erythromycin Erythromycin Unknown Drug Allergy 07/27/2020 Active Keflex anaphylaxis Drug Allergy 05/23/2022 Acti ve dexlansoprazole Dexlansoprazole anaphylaxis Drug Allergy Active buspirone busPIRone Unknown Drug Allergy 10/26/2022 Active clindamycin Clindamycin Unknown Drug Allergy 07/27/2020 Ac tive Penicillin Unknown Drug Allergy 07/27/2020 Activ e Results Component Value Reference Range Flag Notes T4 Free Reviewed date:01/20/2024 12:00:00 AM Interpretation: Performing Lab: Notes/Report: T4 Free 0.73 ng/dL Thyroid Stimulating Hormone Reviewed date:01/20/2024 12:00:00 AM Interpretation: Performing Lab: Notes/Report: TSH 0.35 mcIU/mL Vitamin D 25 Hydroxy Reviewed date:11/24/2023 12:00:00 AM Interpretation: Performing Lab: Notes/Report: Vitamin D 25 OH 74 ng/mL Thyroid Stimulating Hormone Reviewed date:11/24/2023 12:00:00 AM Interpretation: Performing Lab: Notes/Report: TSH 0.08 mcIU/mL T4 Free Reviewed date:11/24/2023 12:00:00 AM Interpretation: Performing Lab: Notes/Report: T4 Free 0.99 ng/dL Magnesium Reviewed date:11/24/2023 12:00:00 AM Interpretation: Performing Lab: Notes/Report: Magnesium Lvl 2.0 mg/dL Lipid Panel {Chol, Trig, HDL , LDL} Reviewed date:11/24/2023 12:00:00 AM Interpretation: Performing Lab: Notes/Report: Chol/HDL 5 Cholesterol Total 226 mg/dL Coronary Risk 19 % HDL 42 mg/dL LDL 150 mg/dL NON HDL CHOLESTEROL 184 mg/dL Triglycerides 172 mg/dL Hemoglobin A1c {Glycosylated } Reviewed date:11/24/2023 12:00:00 AM Interpretation: Performing Lab: Notes/Report: eAvg Glucose 103 mg/dL Hemoglobin A1c 5.2 % Comprehensive Metabolic Pane l Reviewed date:11/24/2023 12:00:00 AM Interpretation: Performing Lab: Notes/Report: Albumin Lvl 4.2 g/dL Albumin/Globulin Ratio 1.8 Alk Phos 58 unit/L ALT 10 unit/L ANION GAP 8.2 mmol/L AST 12 unit/L Bilirubin Total 0.3 mg/dL BUN 11 mg/dL Calcium Lvl 9.1 mg/dL Chloride Lvl 109 mmol/L CO2 24 mmol/L Creatinine Lvl 0.82 mg/dL eGFR CKD-EPI 89 mL/min/1.73 m2 Glucose Lvl 85 mg/dL Potassium Lvl 4.0 mmol/L Protein Total 6.5 g/dL Sodium Lvl 141 mmol/L CBC w/ Diff Reviewed date:11/24/2023 12:00:00 AM Interpretation: Performing Lab: Notes/Report: Basophil Auto 0.5 % Eos Absolute 0.1 x10*3/mcL Eosinophil Auto 1.1 % Hct 38.3 % Hgb 13.1 g/dL Lymph Absolute 2.8 x10*3/mcL Lymph Auto 37.4 % MCH 32.5 pg MCHC 34.1 g/dL MCV 95.2 fL [place] Absolute 0.6 x10*3/mcL [place] Auto 8.1 % MPV 9.0 fL Neutro Absolute 3.9 x10*3/mcL Neutro Auto 52.9 % Platelets 257 K/mcL RBC 4.03 x10*6/mcL RDW 12.7 % WBC 7.5 K/mcL Thyroid Stimulating Hormone Reviewed date:05/15/2024 08:01:36 PM Interpretation: Performing Lab: Notes/Report: Test Performed by: [facility] [place] [id number] [employer] Production Machine Operator: Arnoldo Morse DO TSH 0.25 0.45-5.33 mcIU/mL L Lipid Panel {Chol, Trig, HDL , LDL} Reviewed date:05/15/2024 08:01:26 PM Interpretation: Performing Lab: Notes/Report: Test Performed by: [place] [id number] [employer] Production Machine Operator: Arnoldo Morse DO Cholesterol Total 248 <=199 mg/dL H Triglycerides 147 0-149 mg/dL Triglyceride Reference Ranges: <150 mg/dL Normal 150 - 199 mg/dL Borderline High 200 - 499 mg/dL High >=500 mg/dL Very High LDL 168 <=100 mg/dL H LDL Optimal: <100 Near or above optimal: 100-129 Borderline high: 130-159 High: 160-189 Very high: >=190 Coronary heart disease risk factors should be considered when determining LDL goals. Please refer to ATPIII guidelines for further information. If LDL is not calculated, please call the lab to add on the direct LDL methodology, if desired. HDL 50 23-92 mg/dL Non HDL Cholesterol 198 <=130 mg/dL H Chol/HDL 5 0-5 Coronary Risk 20 Coronary Risk Factor - Male Dangerous Risk: <7 % High Risk: 7-15 % Average Risk: 15-25 % Below Average Risk: 25-37 % Coronary Risk Factor - Female Dangerous Risk: <12 % High Risk: 12-18 % Average Risk: 18-27 % Below Average Risk: 27-40 % Comprehensive Metabolic Pane l Reviewed date:05/15/2024 08:01:26 PM Interpretation: Performing Lab: Notes/Report: Test Performed by: [place] [id number] [employer] Machine Operator: Arnoldo Morse DO Glucose Lvl 88 74-109 mg/dL ADA risk stratification for diabetes <100 mg/dL = Normal 100-125 mg/dL = Increased risk for future diabetes >=126 mg/dL = Diabetes, if on more than one testing occasion BUN 15 7-25 mg/dL Creatinine Lvl 0.94 0.60-1.20 mg/dL eGFR CKD-EPI 75 >=90 mL/min/1.73 m2 L The CKD-EPI equation is validated in individuals 18 years of age and older. It is less accurate in patients with extremes of muscle mass, restriction of dietary protein, ingestion of creatine, extra-renal metabolism of creatinine, or treatment with medications that affect renal tubular creatinine secretion. GFR Categories in Chronic Kidney Disease (CKD) GFR GFR (mL/min/1.73 Category: square meters): Interpretation: G1 90 or greater Normal or high* G2 60-89 Mild decrease* G3a 45-59 Mild to moderate decrease G3b 30-44 Moderate to severe decrease G4 15-29 Severe decrease G5 14 or less Kidney failure *In the absence of evidence of kidney damage, neither GFR category G1 nor G2 fulfill the criteria for CKD (Kidney Int Suppl 2013;3:1-150) Calcium Lvl 9.0 8.6-10.3 mg/dL Sodium Lvl 140 136-145 mmol/L Potassium Lvl 4.9 3.5-5.1 mmol/L Chloride Lvl 110 98-107 mmol/L H CO2 25 21-31 mmol/L Anion Gap 5.0 <=16.0 mmol/L Alk Phos 66 34-104 unit/L Bilirubin Total 0.3 0.3-1.0 mg/dL Albumin Lvl 4.2 3.5-5.2 g/dL Protein Total 6.6 6.4-8.9 g/dL Albumin/Globulin Ratio 1.8 1.1-2.5 ALT 16 7-52 unit/L AST 14 13-39 unit/L CBC w Auto Diff Reviewed date:05/15/2024 08:01:16 PM Interpretation: Performing Lab: Notes/Report: Test Performed by: [facility] [address] [id number] [employer] Production Machine Operator: Arnoldo Morse DO WBC 7.9 4.0-11.7 K/mcL RBC 4.11 3.80-5.41 x10*6/mcL Hgb 13.1 11.3-15.2 g/dL Hct 39.1 33.2-45.3 % MCV 95.3 79.5-98.1 fL MCH 32.0 27.0-34.2 pg MCHC 33.6 31.8-35.3 g/dL RDW 13.0 12.0-16.4 % Platelets 290 149-393 K/mcL MPV 8.8 7.0-11.0 fL Neutro Auto 41.7 45.3-79.0 % L Lymph Auto 47.4 11.8-45.9 % H [place] Auto 7.8 4.4-12.0 % Eosinophil Auto 1.8 0.0-6.3 % Basophil Auto 1.3 0.2-1.6 % Neutro Absolute 3.3 2.4-8.4 x10*3/mcL Lymph Absolute 3.8 0.8-3.7 x10*3/mcL H [place] Absolute 0.6 0.3-1.1 x10*3/mcL Eos Absolute 0.1 0.0-0.5 x10*3/mcL Baso Absolute 0.1 0.0-0.1 x10*3/mcL T4 Free Reviewed date:05/15/2024 08:01:16 PM Interpretation: Performing Lab: Notes/Report: Test Performed by: [place] [address] [employer] Machine Operator: Arnoldo Morse DO T4 Free 0.89 0.60-1.70 ng/dL T3 Free Reviewed date:05/15/2024 08:01:16 PM Interpretation: Performing Lab: Notes/Report: Test Performed by: [place] [address] [employer] Machine Operator: Arnoldo Mrose DO T3 Free 3.39 2.50-4.30 pg/mL Vitamin D 25 Hydroxy Reviewed date:05/15/2024 08:01:16 PM Interpretation: Performing Lab: Notes/Report: Test Performed by: [place] [address] [employer] Production Machine Operator: Arnoldo Morse DO Vitamin D 25 OH 72 30-100 ng/mL Vitamin D25 Interpretation: Deficient: <= 20 ng/mL Insufficient: 21-29 ng/mL Sufficient: 30-100 ng/mL Upper Safety Limit: >100 ng/mL Hemoglobin A1c {Glycosylated } Reviewed date:05/15/2024 08:01:16 PM Interpretation: Performing Lab: Notes/Report: Test Performed by: [place] [id number] [employer] Machine Operator: Arnoldo Morse DO Hemoglobin A1c 5.2 <=6.4 % Hemoglobin A1C < 5.7% = Normal 5.7-6.4% = Increased risk for future diabetes >=6.5% = Diabetes eAvg Glucose 103 <=117 mg/dL eAG Reference Range <117 mg/dL = Normal 117-137 mg/dL = Increased Risk For Future Diabetes >137 mg/dL = Diabetes MRI : Thoracic without Contr ast Reviewed date:07/24/2024 09:21:49 AM Interpretation: Performing Lab: Notes/Report: MRI : Lumbar without contras t Reviewed date:07/24/2024 09:22:27 AM Interpretation: Performing Lab: Notes/Report: MRI : Cervical without Contr ast Reviewed date:07/24/2024 09:22:09 AM Interpretation: Performing Lab: Notes/Report: Reason For Referral No Information Medications Medication SIG (Take, Route, Frequency, Duration) Notes Start Date End Date Status Pregabalin 75 MG Capsule 1 capsule Orally 3 times a day; Duration: 30 days 06/11/2024 09/09/2024 Active Topiramate 50 MG Tablet 1 tablet in the evening Orally Once a day; Duration: 90 days 05/16/2024 Active DULoxetine HCl 60 mg Capsule Delayed Release Particles 1 capsule oral twice a day; Duration: 90 days Active QUEtiapine Fumarate 25 mg Tablet TAKE 1 TABLET BY MOUTH NIGHTLY AT BEDTIME; Duration: 30 Active Synthroid 75 mcg Tablet TAKE 1 TABLET BY MOUTH EVERY MORNING; Duration: 90 Active Dicyclomine HCl 20 mg Tablet TAKE 1 TABLET AT BEDTIME; Duration: 30 Active Topiramate 100 MG Tablet 1 tablet Orally twice a day; Duration: 90 days Active Aimovig 140 MG/ML Solution Auto-injector as directed Subcutaneous monthly; Duration: 30 days 1 mL monthly PA approved, please fill for patient 03/12/2024 Active Fluticasone Propionate 50 MCG/ACT Suspension 1 spray in each nostril Nasally Twice a day; Duration: 30 days Active Soma 350 MG Tablet 1 tablet as needed Orally 3 times a day; Duration: 30 days failed methocarbamol 05/06/2024 Active Lidocaine 5 % Patch 1 patch remove after 12 hours Externally Once a day; Duration: 30 days 05/10/2024 Active Montelukast Sodium 10 MG Tablet 1 tablet Orally Once a day; Duration: 90 days every evening Active Xhance 93 MCG/ACT Exhaler Suspension 1 Nasal two times a day; Duration: 0 05/20/2023 Active SEROquel XR 50 MG Tablet Extended Release 24 Hour 1 tablet Orally daily; Duration: 90 days at bedtime Active Baclofen 10 MG Tablet 1-2 tablets Orally 3 times a day; Duration: 30 days As needed, do not take with soma Active Lidocaine 5 % Patch 1 patch remove after 12 hours Externally Once a day Active Methocarbamol 750 MG Tablet 1 tablet Orally every 6 hours; Duration: 30 days As needed Active diazePAM 2 MG Tablet TAKE 1 OR 2 TABLETS BY MOUTH TWO TIMES A DAY NEEDED for muscle spasms. Do not take within 12 hours of taking alprazolam; Duration: 30 07/31/2024 Active Celecoxib 200 MG Capsule 1 capsule with food Orally Once a day; Duration: 90 days Active Famotidine 40 MG Tablet 1 tablet Orally Once a day at bedtime; Duration: 30 days 05/23/2024 Active Immunizations Vaccine Route Administration Date Status Comme nts Tdap Unknown 09/03/2016 Administered ,sourcename : Historical information -from other registry Source VFC Code: : Pneumococcal polysaccharide PPV23 Unknown 02/02/2018 Administered ,sourcename : Historical information -from other registry Source VFC Code: : Pfizer-Biontech Covid-19 Vaccine 1st dose IM Intramuscular 01/23/2023 Administered ,sourcename : N ew immunization record ,immstatus : Complete Pfizer-Biontech Covid-19 Vaccine 1st dose IM Intramuscular 01/19/2024 Administered ,sourcename : N ew immunization record ,immstatus : Complete Influenza, seasonal, injectable, preservative free, 3 yrs and above IM Intramuscular 01/19/2024 Administered ,sourcename : N ew immunization record ,immstatus : Complete Influenza, quadrivalent (IIV4), split virus, 6-35 months dosage IM Intramuscular 12/29/2020 Administered ,sourcename : N ew immunization record ,immstatus : Complete Influenza, quadrivalent (IIV4), split virus, 6-35 months dosage IM Intramuscular 04/21/2022 Administered ,sourcename : New immunization record ,immstatus : Complete Source VFC Code: : Influenza, quadrivalent (IIV4), split virus, 6-35 months dosage IM Intramuscular 01/23/2023 Administered ,sourcename : N ew immunization record ,immstatus : Complete Social History Social History Additional Details Category Social Info Options Details Migrated Social History Migrated Social History Marital status: Problems Problem Type SNOMED Code ICD Code Onset Dates Problem Status W/U Status Risk Notes Problem Fibromyalgia (378709793) Fibromyalgia (M79.7) 022 Active confirmed Problem Esophageal reflux (000130870) Esophageal reflux (530.81) 019 Problem resolved confirmed Problem Shortness of breath (162998653) Shortness of breath (786.05) 018 Problem resolved confirmed Problem Diarrhea (89434956) Diarrhea (787.91) 018 Problem resolved confirmed Problem Erythrocyte sedimentation rate raised (426438464) Elevated sedimentation rate (790.1) 019 Problem resolved confirmed Problem Mixed hyperlipidemia (727623779) Mixed hyperlipidemia (E78.2) 016 Problem resolved confirmed Problem Primary insomnia (3247404) Primary insomnia (F51.01) 016 Problem resolved confirmed Problem Acute sinusitis (74945805) Acute sinusitis, unspecified (J01.90) 017 Problem resolved confirmed Problem Flexion deformity, right shoulder (M21.211) 016 Problem resolved confirmed Problem Spasm of back muscles (790275368) Muscle spasm of back (M62.830) 018 Problem resolved confirmed Problem Erythrocyte sedimentation rate raised (626530579) Elevated erythrocyte sedimentation rate (R70.0) 019 Problem resolved confirmed Problem Histopathology finding (995197584) Unspecified abnormal finding in specimens from other organs, systems and tissues (R89.9) 021 Problem resolved confirmed Problem Gynecological examination normal (689275802951863) Encounter for gynecological examination (general) (routine) without abnormal findings (Z01.419) 023 Problem resolved confirmed Problem Leukocytosis (746893731) Elevated white blood cell count, unspecified (D72.829) 018 Problem resolved confirmed Problem Candidiasis (67415025) Candidiasis, unspecified (B37.9) 023 Problem resolved confirmed Problem Zoster with other complications (B02.8) 016 Problem resolved confirmed Problem General examination of patient (349440446) Routine general medical examination at health care facility (V70.0) 017 Problem resolved confirmed Problem Vaccination needed (510875746117539) Need for prophylactic vaccination and inoculation, Other viral diseases (V04.89) Problem resolved confirmed Problem Left upper quadrant pain (477908889) Abdominal pain, left upper quadrant (789.02) Problem resolved confirmed Problem Cough (65500835) Cough (786.2) Problem resolved confirmed Problem Abnormal weight gain (964811968) Abnormal weight gain (783.1) Problem resolved confirmed Problem Disturbance of skin sensation (409507360) Disturbance of skin sensation (782.0) Problem resolved confirmed Problem Sensory disorder of smell and/or taste (5099681787305) Disturbances of sensation of smell and taste (781.1) Problem resolved confirmed Problem Acquired deformity of limb (66492200) Other acquired deformity of other parts of limb (736.89) Problem resolved confirmed Problem Muscle pain (85334058) Unspecified myalgia and myositis (729.1) Problem resolved confirmed Problem Lumbago (521631525) Lumbago (724.2) 05/31 Problem resolved confirmed Problem Female genital organ symptoms (950927490) Unspecified symptom associated with female genital organs (625.9) 017 Problem resolved confirmed Problem Glossitis (38674303) Glossitis (529.0) Problem resolved confirmed Problem Disease of the oral soft tissues (08929220) Other and unspecified diseases of the oral soft tissues (528.9) 017 Problem resolved confirmed Problem Perforation of root canal space (526.61) 019 Problem resolved confirmed Problem Allergic asthma without status asthmaticus (disorder) (56937134) Extrinsic asthma, unspecified (493.00) 018 Problem resolved confirmed Problem Acute sinusitis (63097623) Acute sinusitis, unspecified (461.9) 017 Problem resolved confirmed Problem Allergic rhinitis (35142398) Allergic rhinitis, cause unspecified (477.9) Problem resolved confirmed Problem Migraine (disorder) (52933546) Migraine, unspecified without mention of intractable migraine without mention of status migrainosus (346.90) Problem resolved confirmed Problem Tobacco user (653776667) Nondependent tobacco use disorder (305.1) Problem resolved confirmed Problem Leukocytosis (968826481) Leukocytosis, unspecified (288.60) Problem resolved confirmed Problem Hyperlipidemia (88671147) Other and unspecified hyperlipidemia (272.4) Problem resolved confirmed Problem Candidiasis of mouth (08741842) Candidiasis of mouth (112.0) Problem resolved confirmed Problem Unspecified herpes zoster complication (053.8) Problem resolved confirmed Problem Low back pain (715946404) Low back pain, unspecified (M54.50) Active confirmed Problem Imaging result abnormal (424142303) Abnormal findings on diagnostic imaging of other specified body structures (R93.89) Active confirmed Problem Leakage of breast implant (disorder) (712233539) Leakage of breast prosthesis and implant, subsequent encounter (T85.43XD) Active confirmed Problem Leakage of breast implant (disorder) (847610026) Leakage of breast prosthesis and implant, initial encounter (T85.43XA) Active confirmed Problem Blood chemistry abnormal (513086172) Other specified abnormal findings of blood chemistry (R79.89) Active confirmed Problem Laboratory test result abnormal (852776923) Abnormal levels of other serum enzymes (R74.8) Active confirmed Problem Abnormal reflex (69675102) Abnormal reflex (R29.2) Active confirmed Problem Fasciculation (R25.3) Active confirmed Problem Tremor (67222423) Tremor, unspecified (R25.1) Active confirmed Problem Hyperesthesia (82987052) Hyperesthesia (R20.3) Active confirmed Problem Paresthesia (finding) (59477272) Paresthesia of skin (R20.2) Active confirmed Problem Spasm (06583469) Other muscle spasm (M62.838) 022 Active confirmed Problem Backache (893340740) Dorsalgia, unspecified (M54.9) Active confirmed Problem Cervicalgia (11277047) Cervicalgia (M54.2) Active confirmed Problem Thoracic radiculopathy (64695525) Radiculopathy, thoracic region (M54.14) Active confirmed Problem Displacement of thoracic intervertebral disc without myelopathy (49447472) Other intervertebral disc displacement, thoracic region (M51.24) Active confirmed Problem Radiculopathy due to lumbar intervertebral disc disorder (545659127571195) Intervertebral disc disorders with radiculopathy, lumbar region (M51.16) Active confirmed Problem Degeneration of cervical intervertebral disc (27097190) Other cervical disc degeneration, unspecified cervical region (M50.30) Active confirmed Problem Spinal stenosis in cervical region (86402662) Spinal stenosis, cervical region (M48.02) Active confirmed Problem Torticollis (44374458) Torticollis (M43.6) Active confirmed Problem Uncomplicated asthma (disorder) (374019422) Unspecified asthma, uncomplicated (J45.909) Active confirmed Problem Deviated nasal septum (890505322) Deviated nasal septum (J34.2) Active confirmed Problem Chronic pain (08094844) Other chronic pain (G89.29) Active confirmed Problem Migraine without aura, not refractory (disorder) (382538891) Migraine, unspecified, not intractable, without status migrainosus (G43.909) Active confirmed Problem Dystonia (67027325) Dystonia, unspecified (G24.9) Active confirmed Problem Posttraumatic stress disorder (20877658) Post-traumatic stress disorder, chronic (F43.12) 016 Active confirmed Problem Recurrent major depression (77923616) Major depressive disorder, recurrent, unspecified (F33.9) Active confirmed Problem Hyperlipidemia (97045952) Hyperlipidemia, unspecified (E78.5) 021 Active confirmed Problem Small fiber neuropathy (276389977) Small fiber neuropathy (G62.9) Active confirmed Problem Paresthesia of both hands (451339077) Paresthesia of both hands (R20.2) Active confirmed Problem Cough (finding) (93097032) Cough, unspecified (R05.9) 022 Problem resolved confirmed Problem Symptom: generalized (864940602) Other general symptoms and signs (R68.89) 023 Problem resolved confirmed Problem Abnormal weight gain (155209853) Abnormal weight gain (R63.5) 018 Problem resolved confirmed Problem Malaise (767049465) Other malais e (R53.81) 023 Problem resolved confirmed Problem Sensory disorder of smell and/or taste (9890514447336) Unspecified disturbances of smell and taste (R43.9) 018 Problem resolved confirmed Problem Dizziness and giddiness (803595496) Dizziness and giddiness (R42) 022 Problem resolved confirmed Problem Somnolence (96078555) Somnolence (R40.0) 022 Problem resolved confirmed Problem Diarrhea (06278182) Diarrhea, unspecified (R19.7) 018 Problem resolved confirmed Problem Pelvic and perineal pain (517398272) Pelvic and perineal pain (R10.2) 017 Problem resolved confirmed Problem Left upper quadrant pain (099541305) Left upper quadrant pain (R10.12) 018 Problem resolved confirmed Problem Other specified symptoms and signs involving the circulatory and respiratory systems (R09.89) 016 Problem resolved confirmed Problem Wheezing (63066311) Wheezing (R06.2) 08/05 08/05 018 Problem resolved confirmed Problem Shortness of breath (724154271) Shortness of breath (R06.02) 018 Problem resolved confirmed Problem Cough (70379609) Cough (R05) 016 Problem resolved confirmed Problem Tachycardia (2515635) Tachycardia, unspecified (R00.0) 016 Problem resolved confirmed Problem Acute vaginitis (40914925) Acute vaginitis (N76.0) 023 Problem resolved confirmed Problem Neuralgia (52236400) Neuralgia a nd neuritis, unspecified (M79.2) 018 Problem resolved confirmed Problem Myalgia (69685896) Myalgia (M79.1) 018 Problem resolved confirmed Problem Spasm (90753648) Contracture of muscle, unspecified site (M62.40) 018 Problem resolved confirmed Problem Pain in thoracic spine (230853142) Pain in thoracic spine (M54.6) 018 Problem resolved confirmed Problem Low back pain (058118303) Low back pain (M54.5) 019 Problem resolved confirmed Problem Disorder of skin AND/OR subcutaneous tissue (65194440) Disorder of the skin and subcutaneous tissue, unspecified (L98.9) 023 Problem resolved confirmed Problem Constipation (89184072) Constipation, unspecified (K59.00) 022 Problem resolved confirmed Problem Glossitis (68773710) Glossitis (K14.0) 017 Problem resolved confirmed Problem Lesion of oral mucosa (3997842489193854) Other lesions of oral mucosa (K13.79) 022 Problem resolved confirmed Problem Dental caries (79810180) Dental caries, unspecified (K02.9) 019 Problem resolved confirmed Problem Uncomplicated moderate persistent asthma (846542069) Moderate persistent asthma, uncomplicated (J45.40) 018 Problem resolved confirmed Problem Acute exacerbation of chronic obstructive airways disease (493419611) Chronic obstructive pulmonary disease with (acute) exacerbation (J44.1) 017 Problem resolved confirmed Problem Chronic rhinitis (25967203) Chronic rhinitis (J31.0) 021 Problem resolved confirmed Problem Pneumonia (286847885) Pneumonia, unspecified organism (J18.9) 018 Problem resolved confirmed Problem Acute pansinusitis (3885047) Acute pansinusitis, unspecified (J01.40) 019 Problem resolved confirmed Problem Psychophysiologic insomnia (483951326) Other insomnia not due to a substance or known physiological condition (F51.09) 018 Problem resolved confirmed Problem Generalized anxiety disorder (31416247) Generalized anxiety disorder (F41.1) 016 Problem resolved confirmed Problem Tobacco user (251866538) Nicotine dependence, cigarettes, uncomplicated (F17.210) 018 Problem resolved confirmed Problem Tobacco user (858063555) Nicotine dependence, unspecified, uncomplicated (F17.200) 016 Problem resolved confirmed Problem Herpes zoster without complication (081535802) Zoster without complications (B02.9) 022 Problem resolved confirmed Problem Wheezing (32439852) Wheezing (786.07) 018 Problem resolved confirmed Problem Spasm (23000344) Spasm of muscle (728.85) 018 Problem resolved confirmed Problem Dental caries (35376478) Other dental caries (521.09) 019 Problem resolved confirmed Problem Acute exacerbation of chronic obstructive airways disease (914466654) Obstructive chronic bronchitis, with (acute) exacerbation (491.21) 017 Problem resolved confirmed Problem Pneumonia (102382985) Pneumonia, organism unspecified [phone] 018 Problem resolved confirmed Problem Deviated nasal septum (667086067) Deviated nasal septum (470) 017 Problem resolved confirmed Problem Acute upper respiratory infection (99614355) Acute upper respiratory infections of unspecified site (465.9) 017 Problem resolved confirmed Problem Acute sinusitis (disorder) (20867578) Other acute sinusitis (461.8) 019 Problem resolved confirmed Problem Transient insomnia (710470355) Transient disorder of initiating or maintaining sleep (307.41) 018 Problem resolved confirmed Problem Neoplasm of uncertain behavior of connective and other soft tissues (76396802) Neoplasms of unspecified nature of bone, soft tissue, and skin (239.2) 017 Problem resolved confirmed Problem Degeneration of cervical intervertebral disc (01125094) Other cervical disc degeneration at C5-C6 level (M50.322) 024 Active confirmed Problem Prosthetic breast implant (physical object) (8650612) Breast implant status (Z98.82) 022 Active confirmed Problem Hyperglycemia (85188484) Hyperglycemia, unspecified (R73.9) Active confirmed Problem Fatigue (45268001) Other fatigue (R53.83) Active confirmed Problem Abnormal gait (49341230) Unspecified abnormalities of gait and mobility (R26.9) Active confirmed Problem Dysphagia (92701827) Dysphagia, unspecified (R13.10) Active confirmed Problem Radiculopathy (32808039) Radiculopathy, site unspecified (M54.10) Active confirmed Problem Displacement of cervical intervertebral disc without myelopathy (96185310) Other cervical disc displacement, unspecified cervical region (M50.20) Active confirmed Problem Gastro-esophageal reflux disease without esophagitis (235411024) Gastro-esophagea l reflux disease without esophagitis (K21.9) Active confirmed Problem Allergic rhinitis (82833071) Allergic rhinitis, unspecified (J30.9) Active confirmed Problem Brachial plexus disorder (9106611) Brachial plexus disorders (G54.0) Active confirmed Problem Vitamin D deficiency (37494120) Vitamin D deficiency, unspecified (E55.9) Active confirmed Problem Hypothyroidism (81787314) Hypothyroidism, unspecified (E03.9) Active confirmed Vital Signs Heart Rate 69 /min 05/10/2024 Temperature 97.3 degrees Fahrenheit 05/10/2024 Respiratory Rate 20 /min 05/10/2024 Height-cm 165.61 cm 05/10/2024 Oximetry 97 % 05/10/2024 Blood pressure diastolic 90 mm Hg 05/10/2024 Weight-kg 75.12 kg 05/10/2024 Height 65.20 in 05/10/2024 Blood pressure systolic 152 mm Hg 05/10/2024 Weight 165.6 lbs 05/10/2024 BMI 27.39 kg/m2 05/10/2024 Encounters Encounter Location Date Provider Diagnosis [address] [address] 11/22/2023 Dr. Ruby Nogueira Tremor, unspecified R25.1 ; Hypothyroidism, unspecified E03.9 ; Migraine, unspecified, not intractable, without status migrainosus G43.909 ; Paresthesia of skin R20.2 ; Hyperglycemia, unspecified R73.9 ; Spinal stenosis, cervical region M48.02 ; Brachial plexus disorders G54.0 ; Hyperlipidemia, unspecified E78.5 ; Gastro-esophageal reflux disease without esophagitis K21.9 and Vitamin D deficiency, unspecified E55.[address] [address] 11/27/2023 Provider Migration Hypothyroidism, unspecified E03.[address] [address] 12/29/2023 Provider Migration Encounter for other screening for malignant neoplasm of breast Z12.39 [place] [address] 01/12/2024 Dr. Ruby Nogueira Candidal stomatitis B37.[address] [address] 01/19/2024 Octavia Ricci Gastro-esophageal reflux disease without esophagitis K21.9 ; Spinal stenosis, cervical region M48.02 ; Encounter for screening mammogram for malignant neoplasm of breast Z12.31 ; Major depressive disorder, recurrent, unspecified F33.9 ; Migraine, unspecified, not intractable, without status migrainosus G43.909 ; Paresthesia of skin R20.2 ; Candidal stomatitis B37.0 ; Encounter for general adult medical examination without abnormal findings Z00.00 ; Tremor, unspecified R25.1 ; Other chronic pain G89.29 ; Breast implant status Z98.82 ; Encounter for immunization Z23 ; Vitamin D deficiency, unspecified E55.9 and Brachial plexus disorders G54.[address] [address] 02/26/2024 Dr. Ruby Nogueira Brachial plexus disorders G54.0 ; Other chronic pain G89.29 ; Fibromyalgia M79.7 and Intervertebral disc disorders with radiculopathy, lumbar region M51.[address] [address] 05/10/2024 Dr. Ruby Nogueira Hypothyroidism, unspecified E03.9 ; Vitamin D deficiency, unspecified E55.9 ; Hyperlipidemia, unspecified E78.5 ; Major depressive disorder, recurrent, unspecified F33.9 ; Hyperglycemia, unspecified R73.9 ; Small fiber neuropathy G62.9 ; Brachial plexus disorders G54.0 ; Post-traumatic stress disorder, chronic F43.12 ; Radiculopathy, thoracic region M54.14 ; Spinal stenosis, cervical region M48.02 ; Torticollis M43.6 ; Intervertebral disc disorders with radiculopathy, lumbar region M51.16 and Weakness of left lower extremity R29.898 [facility] [address] [place] [address] 02/03/2024 Provider Migration [facility] [address] [place] [address] 02/04/2024 Provider Migration [address] [address] 02/15/2024 Dr. Ruby Nogueira [address] [address] 02/23/2024 Dr. Ruby Nogueira [place] [address] [place] [address] 03/11/2024 Dr. Ruby Nogueira [place] [place] [address] 03/12/2024 Dr. Ruby Nogueira [address] [address] 03/14/2024 Dr. Ruby Nogueira Paresthesia of both hands R20.[address] [address] 03/30/2024 Dr. Ruby Nogueira Other chronic pain G89.29 [place] [place] [address] 04/08/2024 Dr. Ruby Nogueira Other chronic pain G89.29 [facility] [address] [place] [address] 04/24/2024 Dr. Ruby Nogueira Other chronic pain G89.29 [address] [place] [place] [address] 04/24/2024 Dr. Ruby Nogueira [place] [place] [address] 05/06/2024 Dr. Ruby Nogueira [address] [place] [address] 05/15/2024 Dr. Ruby Nogueira Abnormal TSH R79.[address] [address] 05/16/2024 Dr. Ruby Nogueira [address] [address] 05/21/2024 Dr. Ruby Nogueira Other chronic pain G89.[address] [address] 06/11/2024 Dr. Ruby Nogueira Paresthesia of both hands R20.[address] [address] 07/05/2024 Dr. Ruby Nogueira Other chronic pain G89.29 Assessments Encounter Date Diagnosis (ICD Code) Assessment Notes Treatment Notes Treatment Clinical Notes Section Notes 05/10/2024 Hypothyroidism, unspecified (ICD-10 - E03.9) 05/10/2024 Vitamin D deficiency, unspecified (ICD-10 - E55.9) 03/14/2024 Paresthesia of both hands (ICD-10 - R20.2) 04/08/2024 Other chronic pain (ICD-10 - G89.29) 04/24/2024 Other chronic pain (ICD-10 - G89.29) 05/15/2024 Abnormal TSH (ICD-10 - R79.89) 05/21/2024 Other chronic pain (ICD-10 - G89.29) 06/11/2024 Paresthesia of both hands (ICD-10 - R20.2) 07/05/2024 Other chronic pain (ICD-10 - G89.29) 11/22/2023 Hypothyroidism, unspecified (ICD-10 - E03.9) 11/22/2023 Vitamin D deficiency, unspecified (ICD-10 - E55.9) 11/22/2023 Hyperlipidemia, unspecified (ICD-10 - E78.5) 11/22/2023 Migraine, unspecified, not intractable, without status migrainosus (ICD-10 - G43.909) 11/22/2023 Brachial plexus disorders (ICD-10 - G54.0) 11/22/2023 Gastro-esophageal reflux disease without esophagitis (ICD-10 - K21.9) 11/22/2023 Spinal stenosis, cervical region (ICD-10 - M48.02) 11/22/2023 Paresthesia of skin (ICD-10 - R20.2) 11/22/2023 Tremor, unspecified (ICD-10 - R25.1) 11/22/2023 Hyperglycemia, unspecified (ICD-10 - R73.9) 11/27/2023 Hypothyroidism, unspecified (ICD-10 - E03.9) 12/29/2023 Encounter for other screening for malignant neoplasm of breast (ICD-10 - Z12.39) 01/12/2024 Candidal stomatitis (ICD-10 - B37.0) 01/19/2024 Candidal stomatitis (ICD-10 - B37.0) 01/19/2024 Vitamin D deficiency, unspecified (ICD-10 - E55.9) 01/19/2024 Major depressive disorder, recurrent, unspecified (ICD-10 - F33.9) 01/19/2024 Migraine, unspecified, not intractable, without status migrainosus (ICD-10 - G43.909) 01/19/2024 Brachial plexus disorders (ICD-10 - G54.0) 01/19/2024 Other chronic pain (ICD-10 - G89.29) 01/19/2024 Gastro-esophageal reflux disease without esophagitis (ICD-10 - K21.9) 01/19/2024 Spinal stenosis, cervical region (ICD-10 - M48.02) 01/19/2024 Paresthesia of skin (ICD-10 - R20.2) 01/19/2024 Tremor, unspecified (ICD-10 - R25.1) 01/19/2024 Encounter for general adult medical examination without abnormal findings (ICD-10 - Z00.00) 01/19/2024 Encounter for screening mammogram for malignant neoplasm of breast (ICD-10 - Z12.31) 01/19/2024 Encounter for immunization (ICD-10 - Z23) 01/19/2024 Breast implant status (ICD-10 - Z98.82) 02/26/2024 Brachial plexus disorders (ICD-10 - G54.0) 02/26/2024 Other chronic pain (ICD-10 - G89.29) 03/30/2024 Other chronic pain (ICD-10 - G89.29) 05/10/2024 Hyperlipidemia, unspecified (ICD-10 - E78.5) 05/10/2024 Major depressive disorder, recurrent, unspecified (ICD-10 - F33.9) call in 1 week with update regarding seroquel 02/26/2024 Fibromyalgia (ICD-10 - M79.7) Recommended that she restart Soma, and even if she has to pay pocket until insurance agrees to improve, this may be other than prednisone. One of the quickest ways to get her out of severe pain. She was very tearful in the office for the majority of the visit. Unfortunately, she has multiple complicating factors contributing to her pain. I suggested a wheelchair for now just to take the pressure off of her back and not having her cane aggravate her shoulder and neck and she became more tearful with the frustration that she has limited mobility 05/10/2024 Hyperglycemia, unspecified (ICD-10 - R73.9) check labs 02/26/2024 Intervertebral disc disorders with radiculopathy, lumbar region (ICD-10 - M51.16) 05/10/2024 Small fiber neuropathy (ICD-10 - G62.9) f/u with specialist. 05/10/2024 Brachial plexus disorders (ICD-10 - G54.0) 05/10/2024 Post-traumatic stress disorder, chronic (ICD-10 - F43.12) 05/10/2024 Radiculopathy, thoracic region (ICD-10 - M54.14) 05/10/2024 Spinal stenosis, cervical region (ICD-10 - M48.02) 05/10/2024 Torticollis (ICD-10 - M43.6) 05/10/2024 Intervertebral disc disorders with radiculopathy, lumbar region (ICD-10 - M51.16) 05/10/2024 Weakness of left lower extremity (ICD-10 - R29.898) 05/10/2024 Other 43 mins spent face to face. Small Fiber Neuropathy: - Diagnosed with small fiber neuropathy confirmed by skin biopsy. Elevated SSA and SSB antibodies for Sjogren's were not present. Differential diagnosis includes Sjogren's syndrome, scleroderma, and lupus, but antibody levels were not significant. - ENT consultation for a lip biopsy to further investigate potential Sjogren's syndrome. Consideration of hydroxychloroquine or other immune modulators if Sjogren's is confirmed. Post-Fall Pain and Neurological Symptoms: - Pain and neurological symptoms following a fall on February 27, 2024, including radicular pain and spasticity. Symptoms suggest possible disc or nerve involvement. - Order MRI of the neck, back, and lumbar spine to assess changes post-fall. Continue physical therapy. Consider counseling for pain management and emotional support. Unforunately as the months have gone by, she has inversion of her left foot while walking like a spasticity, has left sided paresthesias that are worsening and woresning pain and more limited movement on left upper and lower extremities. Would suggest MRI for better assessment. She has severe pain that has been very difficulty to treat. She is not on narcotics, however. Max dose of cymbalta currently. Mutliple methods for pain control currently which isn't helping enough. Nasal [place] Discomfort: - Nasal spray causing discomfort due to deviated septum, leading to spray entering tear duct. - Suggest repositioning technique to prevent spray from entering tear duct. Pull away nostril and block tear duct with light compression before spraying Depression and Anxiety: - Depression and anxiety exacerbated by chronic pain and reduced independence. Patient feels like a useless waste of space due to reliance on others for daily activities. - Switch Seroquel to 50 mg extended release at bedtime. Recommend counseling for depression and pain management. Resources given and suggested strongly she contact a counselor and workk on depression but also methods for pain control. - Risks and side effects: Monitor for increased sedation or dizziness with duloxetine increase and Seroquel change. Thyroid Function: - Thyroid function not assessed in the past year. - Perform thyroid labs. Feeling cold all the time. May be neurologic but need to check thyroid. Plan Of Treatment Pending Test Test Name Order Date TSH 05/15/2024 ACTH, Plasma 05/15/2024 Prolactin 05/15/2024 IGF-1 05/15/2024 FSH and LH 05/15/2024 Cortisol - AM 05/15/2024 Hemoglobin A1c {Glycosylated} 05/10/2024 Vitamin D 25 Hydroxy 05/10/2024 T3 Free 05/10/2024 T4 Free 05/10/2024 CBC w Auto Diff 05/10/2024 Comprehensive Metabolic Panel 05/10/2024 Lipid Panel {Chol, Trig, HDL, LDL} 05/10 Thyroid Stimulating Hormone 05/10/2024 Next Appt Details Provider Name:Dr. Ruby abdul, 09/20/2024 08:30:00 AM, [facility] [address], [place], [address], [phone] Provider Name:Dr. Ruby abdul, 11/14/2024 10:45:00 AM, [facility] [address] [facility], [place], [address], [phone] Insurance Providers Payer Name Payer Address Payer Phone Subscriber Number Group Number Insured Name Patient Relationship to Insured Coverage Start Date Coverage End Date [employer] [address] [place] [address] [id number] Yvan Duran Spouse - patient is the spouse of the insured Medications Administered Medication Instructions Date of Administration Dosage Notes dexAMETHasone 02/26/2024 6 mg Medical (General) History Surgical History Surgery Date(Month/Year) (85445) SHOULDER ARTHROSCOPY /SURGERY ,notes : left shoulder tumor removal, 2007 (84094) SHOULDER SURGERY PRO CEDURE ,notes : right shoulder surgery 2014 (77530) RECONSTRUCTION OF NOSE epidural injections ,notes : Cervical and Lumbar spine. C6-C7 #2 (12/25) (95869) ENLARGE BREAST WITH IMPLANT ,not es : 2009, bilateral cervical surgery ,notes : ce rvical radiofrequency performed C3, C4, C5 04/04/2022 (97163) PARTIAL HYSTERECTOMY ,notes : pa rtial in 2000, cancer cells 20 years ago
--- NOTE | 2024-08-20 06:17 | ECG_ITS ---
Test Date: 2024-08-20 07:24:45 Measurements Intervals [place] Rate: 56 P: 55 NM: 206 QRS: 51 QRSD: 88 T: 50 QT: 439 QTc: 424 Interpretive Statements SINUS BRADYCARDIA WITH SINUS ARRHYTHMIA CONSIDER RIGHT VENTRICULAR CONDUCTION DELAY BORDERLINE ECG No previous ECG available for comparison Electronically Signed On 08-20-2024 08:33:12 CDT by Fidel Griffith D.O.
[2024-08-20] MEDS: LACTATED RINGERS 1,000 ML 30 ML IV CONT ×2 (06:20→10:50)
--- NOTE | 2024-08-20 06:51 | P.PNAN_ITS ---
Anes - Initial Pre Proc Eval Procedure: Operation Date: 08/20/24 07:30 Proposed Procedures p Removal Bilateral Breast Implants, - Andrés Mitchell MD s Bilateral Breast Mastopexy with GalaFlex - Andrés Mitchell MD Date/Time: 08/20/24 06:51 Surgeon: Andrés Mitchell MD Pre Op Diagnosis: bilat breast implant rupture Patient Data Age: 49 Gender: F Height: 1.65 m Weight: 75 kg Allergies Allergy/AdvReac Type Severity Reaction Status Date / Time buspirone (From BuSpar) Allergy Intermediate Anaphylaxis Verified 08/20/24 06:58 cephalexin Allergy Intermediate Anaphylaxis Verified 08/20/24 06:58 clindamycin Allergy Intermediate Anaphylaxis Verified 08/20/24 06:58 Penicillins Allergy Intermediate Unknown Verified 08/20/24 06:58 Home Medications ?Medication ?Instructions ?Recorded ?Confirmed ?Type cetirizine 5 mg tablet 5 mg PO DAILY PRN allergy symptoms 11/04/22 08/19/24 History diazepam 2 mg tablet 2 mg PO QHS PRN sleep 11/04/22 08/19/24 History dicyclomine 20 mg tablet 20 mg PO BID 11/04/22 08/19/24 History montelukast 10 mg tablet 10 mg PO DAILY 11/04/22 08/19/24 History rizatriptan 10 mg tablet 10 mg PO ONCE 11/04/22 08/19/24 History topiramate 100 mg capsule,extended 100 mg PO DAILY 11/04/22 08/19/24 History release 24 hr duloxetine 30 mg capsule,delayed 30 mg PO DAILY 03/30/23 08/19/24 History release duloxetine 60 mg capsule,delayed 60 mg PO DAILY 03/30/23 08/19/24 History release levothyroxine 75 mcg tablet See Rx Instructions .Route 11/02/23 08/19/24 Rx (Synthroid) .COMPLEX #90 tabs carisoprodol 350 mg tablet 350 mg PO TID PRN muscle pain 08/19/24 08/19/24 History erenumab-aooe 140 mg/mL 140 mg subcut MONTHLY 08/19/24 08/19/24 History subcutaneous auto-injector (Aimovig Autoinjector) famotidine 40 mg tablet 40 mg PO HS 08/19/24 08/19/24 History pregabalin 75 mg capsule 75 mg PO Q8H 08/19/24 08/19/24 History quetiapine 50 mg tablet,extended 50 mg PO HS 08/19/24 08/19/24 History release 24 hr topiramate 50 mg tablet 50 mg PO HS 08/19/24 08/19/24 History Patient hx anesthesia problems: none Family hx anesthesia problems: none Results Review: All pre-operative results and documents have been reviewed as part of the pre- operative evaluation. [facility] Past Medical History Medical History Thoracic outlet syndrome Vaginal delivery Surgical History Surgical History History of breast augmentation lift and implants History of hysterectomy History of oophorectomy History of radiofrequency ablation (RFA) of nerve of cervical spine History of rhinoplasty History of rotator cuff surgery Previous section [place] teeth removed Family History Family History Father Lung cancer Heart disease Sibling Hypertension Heart disease Mother Hypertension Grandparent Heart disease Social History Social History Smoking packs per day: 1 Smoking cigarettes per day: 20.0 Years smoked: 33 Smoking pack-years: 33.00 Smoking status: Former smoker Tobacco type: cigarettes Smoking end date: 06/19/24 Alcohol intake: current Alcohol use details: occ Substance use: current Substance use type: marijuana Other substance usage details: as needed to relax muscles per MD. Do You Feel Safe in your Home?: Yes Lack of Transportation: No Lack of Food: Never True Current Housing: I Have Housing Concerned About Future Housing: No Difficulty Paying Gas/Electric Bills: No Difficulty Paying for Meds: No Currently Unemployed: No Education: Trade/Vocational Certificate Difficulty w/ Childcare or Family Care: No Living arrangements: with family Spiritual care concerns: No Anes - Eval Final PreProcedure Day of Procedure 08/20/24 06:51 Patient weight: overweight Heart: regular rate and rhythm Lungs: clear to auscultation Airway: Mallampati scale class III Neurological: alert and oriented Last oral intake: >/= 8 hours ASA classification: III Emergent: no Anesthetic plan: proceed Anesthesia type and monitoring: general LMA and standard monitoring Results Review: All pre-operative results and documents have been reviewed as part of the pre- operative evaluation. Informed Consent: The patient's anesthetic plan and its attendant risks and benefits were discussed with the patient/family/POA. Questions were solicited and answers provided to the satisfaction of the patient/family/POA.
--- NOTE | 2024-08-20 07:06 | WPDHPUPDATE1 ---
History and Physical Update Update Date/Time: 08/20/24 07:06 History and Physical has been reviewed, including an updated exam of the patient. There are NO changes in the patient's condition. Risks, benefits, and alternatives have been discussed and questions answered. Patient agrees to proceed with procedure.
--- NOTE | 2024-08-20 07:06 | W.PM.PROC2 ---
Procedure Note - Detailed Date of Procedure 08/20/24 Pre-op Diagnosis bilateral breast implant rupture Post-op Diagnosis Same Procedure Performed Bilateral implant removal with mastopexy and galaflex Surgeon Andrés Mitchell MD Anesthesia General Findings Right breast implant intact Left breast implant intracapsular rupture Inverted T Superior pedicle Description of Procedure She is here today for the above. Previously and again today the risks, benefits, alternatives were discussed in extensive detail. I wanted her to be very realistic about the risks involved as well as expectations. We discussed aftercare and what to monitor for. Made sure answered all of her questions to her satisfaction today and consent was obtained. Marked in the preoperative holding area with their verification. The patient was taken to the operating room placed supine on the operating table. Anesthesia was provided by anesthesiology. A surgical time-out was taken. She was prepped and draped in a standard sterile fashion. 11 blade used to make a stab incision. Tumescent was utilized laterally to provide field block. A 10 blade used to make an incision just superior to the inframammary fold leaving a cusp of de-epithelized tissue at the t junction. Dissection was continued until the capsule was identified. I elevated just superficial to the capsule and removed the majority of that capsule. Implants removed with findings as above. I copiously irrigated with 3 liters of saline solution. I tailor tacked the breast into position. Placed her in a sitting position. Verified the nipple-areolar location based on preoperative planning as well as intraoperative observations and measurements in full agreement. This was limited by previous surgical scar locations. Suction lipectomy was completed laterally with a 4mm bishop cannula. This was based on preoperative planning, intraoperative observation, and rolling pinch which was in full agreement. She was placed supine. I de-epithelialized the pedicle. I then removed the inferior central portion of the breast need making sure the implant was well protected. I elevated medial and lateral tissue flaps as well for planned closure. Galaflex was soaking on the back table in a betadine solution. Trimmed and sutured into place with 2-0 Vicryl. I closed along the IMF with 2-0 Stratafix. Along the vertical with 2-0 PDS. I closed around the areola with 3-0 strata fix. 3-0 Monocryl along the vertical. 3-0 Stratafix along the IMF. I finally closed everything with running subcuticular 4-0 Monocryl and tissue glue. Brijjit's placed along the vertical incision. Fluffs and surgical bra were placed. Estimated Blood Loss 30 Drains No Packing No Pathology Yes (Bilateral breast capsules) Complications No immediate complications Condition Stable Disposition PACU
[2024-08-20] MEDS: TRANEXAMIC ACID 1,000MG/ISO100 1,000 MG/100 ML BAG 200 MG IVPB (07:15)
[2024-08-20] MEDS: VANCOMYCIN 1,250 MG/NS 250 ML 1,250 MG/250 ML BAG 166.67 MG IVPB (07:30)
[2024-08-20 07:45] LABS: Urine Cotinine NEGATIVE
[2024-08-20] MEDS: LACTATED RINGERS IRRIG 1,000 ML, LIDOCAINE 1% LOCAL INJ 50 ML, EPINEPHrine HCL INJ 1 MG... INFILTRATE (07:50)
[2024-08-20] MEDS: POVIDONE IODINE 10% IRRIGATION (07:50)
[2024-08-20] MEDS: [UNRECOGNIZED DRUG - OTHER] IRRIGATION (07:50)
[2024-08-20] MEDS: SODIUM CHLORIDE 0.9% IRRIGATION (07:50)
[2024-08-20] MEDS: AZTREONAM 2 GM/NS 100 ML 2 GM/100 ML BAG IVPB (07:50)
[2024-08-20] MEDS: GENTAMICIN 160 MG IRRIGATION (07:50)
--- NOTE | 2024-08-20 08:26 | S_PTH ---
PATIENT: Yenifer Duran LOC: [facility] U#:[id number] AGE/SX: 49/F ROOM: RE08/20/[address]: Andrés Mitchell MD : 1975 BED: DIS: 08/20/2024 SPEC #: [id number] RECD: 08/20/24 11:32 STATUS: EBER REQ #: [id number] JOSE: 08/20/24 08:[address]: Andrés Mitchell DEPT: [facility] Surgical RECD BY: Maria Elena Calderon ENTERED: 08/20/24 11:32 SP TYPE: Surgical OTHR DR: Ruby Nogueira MD Tissues: A - Breast Capsule B - Breast Capsule Procedures: Hematoxylin and Eosin Stain Gross and Microscopic Level 3
[2024-08-20] MEDS: fentaNYL CITRATE INJ (*CRX) 100 MCG/2 ML VIAL 25 MCG IV PUSH (11:01)
[2024-08-20] MEDS: oxyCODONE HCL (*CRX) 5 MG TAB IR PO (12:27)
--- NOTE | 2024-08-20 13:54 | SUR.PHASEII ---
1210 RIGHT HAND TREMOR NOTED; PATIENT STATES THAT IS HER BASELINE.
== END 2024-08-20 13:40 | disposition home or self-care (01) ==
PROVIDERS: PCP Family Medicine; Visit Provider Surgery Plastic and Reconstructive Surgery
PROC: 0HPT0JZ Removal of Synthetic Substitute from Right Breast, Open Approach (ICD-10-PCS; CPT 19316; principal; 2024-08-20 07:30)
PROC: (CPT 19316; 2024-08-20 07:30)
DX: T85.41XA Breakdown (mechanical) of breast prosthesis and implant, initial encounter (principal); E03.9 Hypothyroidism, unspecified; G54.0 Brachial plexus disorders; G62.9 Polyneuropathy, unspecified; F12.90 Cannabis use, unspecified, uncomplicated; Y83.8 Other surgical procedures as the cause of abnormal reaction of the patient, or of later complication, without mention of misadventure at the time of the procedure; Z98.890 Other specified postprocedural states; Z87.891 Personal history of nicotine dependence; Z80.1 Family history of malignant neoplasm of trachea, bronchus and lung; Z82.49 Family history of ischemic heart disease and other diseases of the circulatory system
CPT/HCPCS: 19316; 15777 ×2; 80307; 88304; 93005; A9270; J0171; J0457; J1100; J1171; J1580; J2003; J2250; J2405; J2704; J3010; J3370; J7120